=== PATIENT | female | born 1985 | race Caucasian/White ===

== ENCOUNTER 2018-08-03 13:35 | Emergency (ER) | payer MEDICAID, SELFPAY ==
[2018-08-03 13:37] VITALS: BP 146/87; PULSE 105; RESP 14; TEMP 36.7; O2SAT 100; BMI 33.0
--- NOTE | 2018-08-03 14:15 | RAD_ITS ---
STUDY: X-RAY - RIGHT ELBOW REASON FOR EXAM: Female, 33 years old. Pain following injury. TECHNIQUE: 3 view(s) of the elbow. COMPARISON: None. FINDINGS: Normal visualized humerus, radius and ulna. Normal radiocapitellar and ulnotrochlear articulations. The soft tissue structures are unremarkable. RAD/Elbow min 3 Views IMPRESSION: Normal x-ray examination of the elbow. Electronically Signed: Mac Barrett MD at 15:00 EST Tel [phone], Service support ,
--- NOTE | 2018-08-03 15:21 | ED.VISSUMM ---
- ER Visit Summary Date of Service: 08/03/18 Chief Complaint: Patient diagnosed with fracture yesterday at urgent care center History of Present Illness: The patient is a 33 F [id number]-[id number] woman who presents emergency room for second opinion. She states she was seen at urgent care center and told she had a fractured elbow. She does not have films with her. She was placed in a long-arm posterior Ortho-Glass splint. She denies paresthesia, anesthesia motors. She states they gave her nothing for pain . She denied head trauma. She denied neck pain. She states her blood sugar dropped. Review of records indicate that she is not diabetic. Physical Examination: Vital signs noted. BMI is 33. Right upper extremity is in a long-arm posterior Ortho-Glass splint. There is no neurovascular deficit to any of her digits. Test Results: Three-view x-ray of the left elbow was obtained interpreted by me as negative. There is no anterior fat pad nose or posterior fat pad. And there is no fracture noted involving the radial head. Emergency Department Course and Treatment: X-ray was obtained to delineate the type of fracture and appropriate treatment and analgesia. Treatment Plan: Rest, ice and keep appointment with orthopedic surgeon since she was informed she had a fracture. She was informed that the x-ray obtained today does not reveal fracture. Disposition: Discharge to home Impression: Left elbow pain secondary to fall second visit This note was generated with [employer] dictation software. It may contain incorrect words, spelling, and punctuation that were not noted in review of the chart prior to signing ED Disposition - Plan for ED Patient: Disposition: Home or Assisted Living Chief Complaint: Upper Extremity Injury Instructions: ED Contusion Elbow Referrals: Hussein Watts MD [Primary Care Provider] - Keep Jose appointment
--- NOTE | 2018-08-03 15:25 | ED.DCSUM_ITS ---
- ER Visit Summary Date of Service: 08/03/18 Chief Complaint: Patient diagnosed with fracture yesterday at urgent care center History of Present Illness: The patient is a 33 F [id number]-[id number]-myjvhanb woman who presents emergency room for second opinion. She states she was seen at urgent care center and told she had a fractured elbow. She does not have films with her. She was placed in a long-arm posterior Ortho-Glass splint. She denies paresthesia, anesthesia motors. She states they gave her nothing for pain . She denied head trauma. She denied neck pain. She states her blood sugar dropped. Review of records indicate that she is not diabetic. Physical Examination: Vital signs noted. BMI is 33. Right upper extremity is in a long-arm posterior Ortho-Glass splint. There is no neurovascular deficit to any of her digits. Test Results: Three-view x-ray of the left elbow was obtained interpreted by me as negative. There is no anterior fat pad nose or posterior fat pad. And there is no fracture noted involving the radial head. Emergency Department Course and Treatment: X-ray was obtained to delineate the type of fracture and appropriate treatment and analgesia. Treatment Plan: Rest, ice and keep appointment with orthopedic surgeon since she was informed she had a fracture. She was informed that the x-ray obtained today does not reveal fracture. Disposition: Discharge to home Impression: Left elbow pain secondary to fall second visit This note was generated with [employer] dictation software. It may contain incorrect words, spelling, and punctuation that were not noted in review of the chart prior to signing ED Disposition - Plan for ED Patient: Disposition: Home or Assisted Living Chief Complaint: Upper Extremity Injury Instructions: ED Contusion Elbow Referrals: Hussein Watts MD [Primary Care Provider] - Keep Jose appointment
--- OUTSIDE RECORDS SUMMARY | 2018-09-29 03:30 | XMS RPT_ITS ---
:1985 Author Organization OHIP Care Team Providers Name Role Phone JAIRON ODELL Attending Unavailable YVES STANTON Attending Unavailable ALEN HASSAN Attending Unavailable ALEN HASSAN Referring Unavailable JUAN CARLOS WEBER (CN) Attending Unavailable ALEN HASSAN Referring Unavailable ALEN HASSAN Attending Unavailable CORNELIUS NORTON Referring Unavailable KODY JONES Attending Unavailable CORNELIUS NORTON Referring Unavailable Alen Hassan Primary Care Unavailable Tin Lizama Attending Unavailable PROBLEMS PROBLEMS DATE TYPE CONDITION / CODE ATTENDING STATUS SOURCE 08/02/2018 Active Pain in right elbow NA Active [facility] / M25.521(ICD-10) [facility] Repository 06/11/2018 Active Encounter for NA Active [facility] screening for [facility] diabetes mellitus / Repository Z13.1(ICD-10) 06/11/2018 Active Encounter for NA Active [facility] screening for lipoid [facility] disorders / Repository Z13.220(ICD-10) 06/11/2018 Active Encounter for NA Active [facility] screening for [facility] cardiovascular Repository disorders / Z13.6(ICD-10) 06/11/2018 Active Encounter for NA Active [facility] general adult [facility] medical examination Repository without abnormal findings / Z00.00(ICD-10) 05/26/2018 Active Cough / R05(ICD-10) NAPORA, JAIRON Active [facility] GARCÍA [facility] Repository 05/26/2018 Active Acute upper NAPORA, JAIRON Active [facility] respiratory GARCÍA [facility] infection, Repository unspecified / J06.9(ICD-10) 05/26/2018 Active Other specified NAPORA, JAIRON Active [facility] disorders of nose GARCÍA [facility] and nasal sinuses / Repository J34.89(ICD-10) 02/23/2018 Active Major depressive YVES STANTON Active [facility] disorder, single S [facility] episode, unspecified Repository / F32.9(ICD-10) 02/23/2018 Active Suicidal ideations / YVES STANTON Active [facility] R45.851(ICD-10) S [facility] Repository 11/10/2017 Active Other injury of Active [facility] unspecified body [facility] region, initial Repository encounter / T14.8XXA(ICD-10) 11/10/2017 Active Local infection of NA Active [facility] the skin and Other [facility] subcutaneous tissue, Repository unspecified / L08.9(ICD-10) PROCEDURES PROCEDURES No Procedure Records FoundRESULTS RESULTS PROGRESS Observed: 08/10/2018 Status: COMPLETED Source: [facility] 4:55 PM [facility] REPOSITORY HNO ID: [id number] Author: Kody Jones V Service: (none) Author Type: Physician Type: Progress Notes Filed: 08/10/2018 4:59 PM Note Text: SUBJECTIVE: Sis Santamaria is a 33 year old female who is here for a right elbow injury. It occurred 2 weeks ago when she fell. Symptoms include pain over posterior elbow, stiffness and swelling in forearm. She was seen in express care, x-ray was questionable for coronoid process fracture, has tried splint and Marquis wrap. PAST MEDICAL HISTORY Diagnosis Date - Anxiety - Depression - Environmental allergies 06/11/2018 - Ex-smoker 06/11/2018 Started at age 19 less than 1/2 a PPD, quit as of May 2018 - History of drug use 06/11/2018 Marijuana, meth, heroine, cocaine, - Restless legs syndrome (RLS) 07/05/2018 PAST SURGICAL HISTORY Procedure Laterality Date - APPENDECTOMY 1995 - SECTION HX 2001,2007 - HERNIA REPAIR HX 2008 - KNEE SURGERY HX 2006 - TUBAL LIGATION HX 2007 Current Outpatient Prescriptions on File Prior to Visit: GABAPENTIN ORAL Take 300 mg by mouth daily at bedtime. traZODone (DESYREL) 50 mg tablet Take 50 mg by mouth daily at bedtime. As needed propranolol (INDERAL) 20 mg tablet Take one tab a day as needed for restless legs. nicotine (NICODERM CQ) 14 mg/24 hr Apply 1 Patch as directed every 24 hours. nicotine (NICODERM CQ) 7 mg/24 hr Apply 1 Patch as directed every 24 hours. ARIPiprazole (ABILIFY) 10 mg tablet TK 1 T PO D fluticasone (FLONASE) 50 mcg/actuation nasal spray Use 1 Bethany in each nostril daily at bedtime. BEFORE LYING DOWN FOR BED (Patient taking differently: Use 1 Bethany in each nostril as needed. BEFORE LYING DOWN FOR BED ) No current facility-administered medications on file prior to visit. Social History Marital status: Spouse name: Years of education: Number of children: 2 Occupational History Occupation Employer Comment [employer] Social History Main Topics Smoking status: Current Every Day Smoker Packs/day: 0.00 Years: 0.00 Smokeless tobacco: Never Used Comment: 5 cigarettes daily Alcohol use: No Drug use: No Sexual activity: Yes Partners with: Male control/protection: Tubal Ligation EXAM: General: cooperative and NAD Location: Right elbow: tenderness over the posterior aspect of the elbow, olecranon process, and forearm. There is minimal tenderness in the antecubital fossa or over the biceps tendon. Negative for: crepitation or instability Neurovascular: intact X-ray: Linear lucency over the coronoid process, no joint effusion, this is not the area of tenderness so fracture is less likely. IMPRESSION: Right elbow contusion, sprain PLAN: Marquis wrap, limited activity, ice as directed Patient Instructions: Recheck in 2 weeks for further evaluation should symptoms continue Kody Jones DO PROGRESS Observed: 08/10/2018 Status: COMPLETED Source: [facility] 3:25 PM [facility] REPOSITORY [facility] ID: [id number] Author: Selam Waldrop Ma Service: (none) Author Type: (none) Type: Progress Notes Filed: 08/10/2018 4:59 PM Note Text: Patient presents with: New Patient: 2 weeks 1 day post right elbow fracture - Ref. Cierra DELUCA ROOMING INTAKE FLOWSHEET DATA Risk Screening Do you have concerns about personal safety or safety in the home?: No Pain Pain Score: 8/10 Pain Location: Elbow-Right Description: Sharp, Shooting Duration Amount of Time: 2 Duration Units: Weeks Frequency: Continuous Intervention: Medication Patient states 2 weeks ago she fell racing her oldest daughter at the school parking lot landing on her right elbow. Seen in Urgent care on 08/02/18 and x-ray done. Was splinted and given a sling. States she has been wearing but took it off today and has it in her car. Patient is right handed. 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 Has been taking 2000 mg of Ibuprofen a day or Aleve for the pain. CNOV Observed: 08/10/2018 Status: COMPLETED Source: [facility] 3:00 PM [facility] REPOSITORY Office Visit () SIS SANTAMARIA ([id number]) 1985 F Date Time Provider Department 08/10/18 3:00 PM KODY JONES During your visit today, we recorded the following information about you: Selam Waldrop Hue 08/10/2018 4:59 PM Signed Patient presents with: New Patient: 2 weeks 1 day post right elbow fracture - Ref. Cierra DELUCA ROOMING INTAKE FLOWSHEET DATA Risk Screening Do you have concerns about personal safety or safety in the home?: No Pain Pain Score: 8/10 Pain Location: Elbow-Right Description: Sharp, Shooting Duration Amount of Time: 2 Duration Units: Weeks Frequency: Continuous Intervention: Medication Patient states 2 weeks ago she fell racing her oldest daughter at the school parking lot landing on her right elbow. Seen in Urgent care on 08/02/18 and x-ray done. Was splinted and given a sling. States she has been wearing but took it off today and has it in her car. Patient is right handed. 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 Has been taking 2000 mg of Ibuprofen a day or Aleve for the pain. Kody Jones DO 08/10/2018 4:59 PM Signed SUBJECTIVE: Sis Santamaria is a 33 year old female who is here for a right elbow injury. It occurred 2 weeks ago when she fell. Symptoms include pain over posterior elbow, stiffness and swelling in forearm. She was seen in express care, x-ray was questionable for coronoid process fracture, has tried splint and Marquis wrap. PAST MEDICAL HISTORY Diagnosis Date - Anxiety - Depression - Environmental allergies 06/11/2018 - Ex-smoker 06/11/2018 Started at age 19 less than 1/2 a PPD, quit as of May 2018 - History of drug use 06/11/2018 Marijuana, meth, heroine, cocaine, - Restless legs syndrome (RLS) 07/05/2018 PAST SURGICAL HISTORY Procedure Laterality Date - APPENDECTOMY 1995 - SECTION HX 2001,2007 - HERNIA REPAIR HX 2008 - KNEE SURGERY HX 2006 - TUBAL LIGATION HX 2007 Current Outpatient Prescriptions on File Prior to Visit: GABAPENTIN ORAL Take 300 mg by mouth daily at bedtime. traZODone (DESYREL) 50 mg tablet Take 50 mg by mouth daily at bedtime. As needed propranolol (INDERAL) 20 mg tablet Take one tab a day as needed for restless legs. nicotine (NICODERM CQ) 14 mg/24 hr Apply 1 Patch as directed every 24 hours. nicotine (NICODERM CQ) 7 mg/24 hr Apply 1 Patch as directed every 24 hours. ARIPiprazole (ABILIFY) 10 mg tablet TK 1 T PO D fluticasone (FLONASE) 50 mcg/actuation nasal spray Use 1 Bethany in each nostril daily at bedtime. BEFORE LYING DOWN FOR BED (Patient taking differently: Use 1 Bethany in each nostril as needed. BEFORE LYING DOWN FOR BED ) No current facility-administered medications on file prior to visit. Social History Marital status: Spouse name: Years of education: Number of children: 2 Occupational History Occupation Employer Comment [employer] Social History Main Topics Smoking status: Current Every Day Smoker Packs/day: 0.00 Years: 0.00 Smokeless tobacco: Never Used Comment: 5 cigarettes daily Alcohol use: No Drug use: No Sexual activity: Yes Partners with: Male control/protection: Tubal Ligation EXAM: General: cooperative and NAD Location: Right elbow: tenderness over the posterior aspect of the elbow, olecranon process, and forearm. There is minimal tenderness in the antecubital fossa or over the biceps tendon. Negative for: crepitation or instability Neurovascular: intact X-ray: Linear lucency over the coronoid process, no joint effusion, this is not the area of tenderness so fracture is less likely. IMPRESSION: Right elbow contusion, sprain PLAN: Marquis wrap, limited activity, ice as directed Patient Instructions: Recheck in 2 weeks for further evaluation should symptoms continue Kody Jones DO Referring Provider: CORNELIUS NORTON [[id number]] Allergies As of Date: 08/10/2018 Noted Allergy Reaction PENICILLINS 10/12/2014 4 - Hives MORPHINE 12/13/2015 4 - Hives Date Reviewed: 08/10/2018 Reviewed by: Selam Waldrop Ma - Fully Assessed Reason for Visit: New Patient [172] Cmt: 2 weeks 1 day post right elbow fracture - Ref. Cierra Primary Visit Diagnosis:Elbow injury, right, subsequent encounter [S59.577F] Prescriptions as of 08/10/2018 Sig: GABAPENTIN ORAL Take 300 mg by mouth daily at* TRAZODONE 50 MG TABLET Take 50 mg by mouth daily at * PROPRANOLOL 20 MG TABLET Take one tab a day as needed * NICOTINE 14 MG/24 HR DAILY TR* Apply 1 Patch as directed walter* NICOTINE 7 MG/24 HR DAILY TRA* Apply 1 Patch as directed walter* ARIPIPRAZOLE 10 MG TABLET TK 1 T PO D FLUTICASONE 50 MCG/ACTUATION * Use 1 Bethany in each nostril d* Patient taking differently: Use 1 Bethany in each nostril a* Problem List As Of Date 08/10/2018 Noted Resolved Pelvic pain in female [R10.2] INVALID FOR* PTSD (post-traumatic stress disorder) [F43.10] INVALID FOR* More... Environmental allergies [Z91.09] INVALID FOR* Ex-smoker [Z87.891] INVALID FOR* More... History of drug use [Z87.898] INVALID FOR* More... Well adult exam [Z00.00] INVALID FOR* More... Encounter for lipid screening for cardiovascula*INVALID FOR* Encounter for screening for diabetes mellitus [*INVALID FOR* Encounter for gynecological examination [Z01.41*INVALID FOR* Restless legs syndrome (RLS) [G25.81] INVALID FOR* Letter Text Kody Jones DO [address], [place] [address] 08/10/2018 TO WHOM IT MAY CONCERN: This is to confirm that Sis Santamaria had an appointment and was seen at the [facility] in the Department of Orthopedics by Kody Jones DO on 08/10/2018 and may return to work on 08/11/2018- activity to tolerance. Sincerely yours, Kody Jones DO Encounter Status:Closed by KODY JONES DO, V on 08/10/18 EMERGENCY DEPARTMENT Observed: 08/03/2018 Status: F Source: [facility] SUMMARY 3:25 PM [facility] REPOSITORY [facility] Medical Records Department [address] [place] [address] Emergency Department Summary 08/03/18 1521 MR#: [id number] Acct: [id number] Name: SIS SANTAMARIA Rep #: [id number] : 1985 33 From: Tin Lizama MD PCP: Alen Hassan MD Status: REG ER - ER Visit Summary Date of Service: 08/03/18 Chief Complaint: Patient diagnosed with fracture yesterday at urgent care center History of Present Illness: The patient is a 33 F [id number] woman who presents emergency room for second opinion. She states she was seen at urgent care center and told she had a fractured elbow. She does not have films with her. She was placed in a long-arm posterior Ortho-Glass splint. She denies paresthesia, anesthesia motors. She states they gave her nothing for pain . She denied head trauma. She denied neck pain. She states her blood sugar dropped. Review of records indicate that she is not diabetic. Physical Examination: Vital signs noted. BMI is 33. Right upper extremity is in a long-arm posterior Ortho-Glass splint. There is no neurovascular deficit to any of her digits. Test Results: Three-view x-ray of the left elbow was obtained interpreted by me as negative. There is no anterior fat pad nose or posterior fat pad. And there is no fracture noted involving the radial head. Emergency Department Course and Treatment: X-ray was obtained to delineate the type of fracture and appropriate treatment and analgesia. Treatment Plan: Rest, ice and keep appointment with orthopedic surgeon since she was informed she had a fracture. She was informed that the x-ray obtained today does not reveal fracture. Disposition: Discharge to home Impression: Left elbow pain secondary to fall second visit This note was generated with Screen dictation software. It may contain incorrect words, spelling, and punctuation that were not noted in review of the chart prior to signing ED Disposition - Plan for ED Patient: Disposition: Home or Assisted Living Chief Complaint: Upper Extremity Injury Instructions: ED Contusion Elbow Referrals: Alen Hassan MD [Primary Care Provider] - Keep Jose appointment What to do if you have Problems For any increased pain, shortness of breath, bleeding, nausea or vomiting, chest pain, or any unexpected problems, contact your Primary Care Provider. Call [facility] ([phone]) or report to the closest Emergency Room. Call 911 if necessary. 08/03/18 1525 <Electronically signed by Tin Lizama MD> Date Tin Lizama MD Cosigner Signature (If Indicated): Date CC: Alen Hassan MD ELBOW MIN 3 VIEWS Observed: 08/03/2018 Status: F Source: [place] 1:46 PM [facility] REPOSITORY [facility] Imaging Services [address] [place] [address] Elbow min 3 Views MR#: [id number] Acct: [id number] Name: SIS SANTAMARIA Rep #: [id number] : 1985 F 33 From: Mac Barrett MD PCP: Alen Hassan MD Status: REG ER Study: Elbow min 3 Views Date of Exam: 08/03/18 Exam# [id number] Ordering Dr: Tin Lizama MD STUDY: X-RAY - RIGHT ELBOW REASON FOR EXAM: Female, 33 years old. Pain following injury. TECHNIQUE: 3 view(s) of the elbow. COMPARISON: None. FINDINGS: Normal visualized humerus, radius and ulna. Normal radiocapitellar and ulnotrochlear articulations. The soft tissue structures are unremarkable. RAD/Elbow min 3 Views IMPRESSION: Normal x-ray examination of the elbow. Electronically Signed: Mac Barrett MD at 15:00 EST Tel [phone], Service support , CC: Alen Hassan MD; Tin Lizama MD Longwall Machine Operator Helper: Signed XR ELBOW 3V AP/LAT/OTHER Observed: 08/02/2018 Status: C Source: [facility] RT 1:08 PM [facility] REPOSITORY * * *Final Report* * * * * * SEE BOTTOM OF REPORT FOR ADDENDED TEXT * * * DATE OF EXAM: Aug 02 2018 1:08PM WOX [id number] - XR ELBOW 3V AP/LAT/OTHER RT / PROCEDURE REASON: Elbow pain, right * * * * Physician Interpretation * * * * * * * * * * * * ORIGINAL REPORT * * * * * * * * PROCEDURE: Right elbow INDICATION: Elbow pain, right .Posterior right elbow pain following a fall. TECHNIQUE: XR ELBOW 3V AP/LAT/OTHER RT COMPARISON: None FINDINGS: No fractures or dislocations are seen. No significant degenerative or arthritic change is evident. There is no evidence for joint effusion or significant soft tissue swelling. IMPRESSION: Negative * * * * * * * * ADDENDUM #1 * * * * * * * * Further review demonstrates a vague, incomplete lucency in the coronoid process on one view. This is nonspecific. Fracture however cannot be excluded. Longwall Machine Operator Helper: PSCB Transcribe Date/Time: Aug 02 2018 2:18P Dictated by : REJI INFANTE MD This examination was interpreted and the report reviewed and electronically signed by: REJI INFANTE MD on Aug 02 2018 1:59PM EST This document has been addended by: REJI INFANTE MD on Aug 02 2018 2:20PM EST [id number] PROGRESS Observed: 08/02/2018 Status: COMPLETED Source: [facility] 1:00 PM [facility] REPOSITORY HNO ID: [id number] Author: Minerva Golden (Rt) Manuel Tam Service: (none) Author Type: French Professor Type: Progress Notes Filed: 08/02/2018 1:08 PM Note Text: Radiology Service Progress Note PATIENT NAME: Sis Santamaria DATE OF SERVICE: August 02, 2018 TIME: 1:00 PM PATIENT IDENTITY VERIFICATION COMPLETED USING TWO (2) METHODS: Patient confirmed name verbally and Date of . PATIENT GENDER DATA: Female. status: : No status: NO. PATIENT RELEVANT IMPLANT DATA REVIEWED: Not Applicable RADIOLOGY DEPARTMENT: General X-ray: Exam(s) Completed: Upper Extremity X-Ray(s): Elbow, right : PERIPHERAL IV DATA: Not applicable SIGNED BY: RT Yuliet August 02, 2018 1:00 PM PROGRESS Observed: 08/02/2018 Status: COMPLETED Source: [place] 12:37 PM [facility] [place] REPOSITORY HNO ID: [id number] Author: Cornelius Norton Service: (none) Author Type: Physician Type: Progress Notes Filed: 08/02/2018 1:47 PM Note Text: Patient presents with: Acute Visit: Right arm injury d/t fall x 5 days HPI: Right elbow pain: Duration: Fell 5 days ago, does not recall the mechanism of how she fell. Location: Posterior right elbow Character: throbbing Radiation: Whole arm if leaning on the right elbow Aggravating: Moving, leaning on Pain relievers: aleve Associated: Fingers are swollen, hand and arm go numb when aggravated, weak hand warehouse picker Pertinent negatives: MEDICATIONS: GABAPENTIN ORAL Take 300 mg by mouth daily at bedtime. traZODone (DESYREL) 50 mg tablet Take 50 mg by mouth daily at bedtime. As needed propranolol (INDERAL) 20 mg tablet Take one tab a day as needed for restless legs. nicotine (NICODERM CQ) 14 mg/24 hr Apply 1 Patch as directed every 24 hours. ARIPiprazole (ABILIFY) 10 mg tablet TK 1 T PO D fluticasone (FLONASE) 50 mcg/actuation nasal spray Use 1 Bethany in each nostril daily at bedtime. BEFORE LYING DOWN FOR BED nicotine (NICODERM CQ) 7 mg/24 hr Apply 1 Patch as directed every 24 hours. ALLERGIES: ALLERGIES Allergen Reactions - Penicillins Hives - Morphine Hives VITALS: BP 108/84 Pulse 92 Temp 37.1 ?C (98.8 ?F) (Left Tympanic) Resp 16 Wt 86.1 kg (189 lb 12.8 oz) SpO2 97% BMI 32.58 kg/m? PE: Pleasant, in no acute distress. Neck: No midline or trapezius tenderness. Should: Non-tender to palpation or ROM Elbow: No erythema, edema, ecchymosis, or deformity. Decreased supination due to pain. Full flexion and extension is uncomfortable. Tender medial condyle>olecranon. Medial malleolus and radial head seem non-tender. Hand: Unable to remove rings on fingers but not visibly swollen. Weak right hand warehouse picker and finger abduction compared to the left.Normal finger sensation to monofilament. ASSESSMENT/PLAN: 1. Closed nondisplaced fracture of coronoid process of right ulna, initial encounter - ICD9: 813.02, ICD10: S52.044A (primary diagnosis) 2. Elbow pain, right - ICD9: 719.42, ICD10: M25.521 - CONSULT TO ORTHOPAEDICS - XR ELBOW SPECIAL VIEWS AP/LAT/OTHER RT Long arm orthoglass splint and sling. Given work excuse limiting right arm use until cleared by ortho. Cornelius Norton MD CNOV Observed: 08/02/2018 Status: COMPLETED Source: [place] 12:15 PM [facility] REPOSITORY Office Visit (WSTR) SIS SANTAMARIA ([id number]) 1985 F Date Time Provider Department 08/02/18 12:15 PM CORNELIUS NORTON During your visit today, we recorded the following information about you: Temperature Pulse Respiration Blood pressure 98.8 degrees 92/minute 16/minute 108/84 Weight 86.1 kg Cornelius Norton MD 08/02/2018 1:47 PM Signed Patient presents with: Acute Visit: Right arm injury d/t fall x 5 days HPI: Right elbow pain: Duration: Fell 5 days ago, does not recall the mechanism of how she fell. Location: Posterior right elbow Character: throbbing Radiation: Whole arm if leaning on the right elbow Aggravating: Moving, leaning on Pain relievers: aleve Associated: Fingers are swollen, hand and arm go numb when aggravated, weak hand warehouse picker Pertinent negatives: MEDICATIONS: GABAPENTIN ORAL Take 300 mg by mouth daily at bedtime. traZODone (DESYREL) 50 mg tablet Take 50 mg by mouth daily at bedtime. As needed propranolol (INDERAL) 20 mg tablet Take one tab a day as needed for restless legs. nicotine (NICODERM CQ) 14 mg/24 hr Apply 1 Patch as directed every 24 hours. ARIPiprazole (ABILIFY) 10 mg tablet TK 1 T PO D fluticasone (FLONASE) 50 mcg/actuation nasal spray Use 1 Bethany in each nostril daily at bedtime. BEFORE LYING DOWN FOR BED nicotine (NICODERM CQ) 7 mg/24 hr Apply 1 Patch as directed every 24 hours. ALLERGIES: ALLERGIES Allergen Reactions - Penicillins Hives - Morphine Hives VITALS: BP 108/84 Pulse 92 Temp 37.1 ?C (98.8 ?F) (Left Tympanic) Resp 16 Wt 86.1 kg (189 lb 12.8 oz) SpO2 97% BMI 32.58 kg/m? PE: Pleasant, in no acute distress. Neck: No midline or trapezius tenderness. Should: Non-tender to palpation or ROM Elbow: No erythema, edema, ecchymosis, or deformity. Decreased supination due to pain. Full flexion and extension is uncomfortable. Tender medial condyle>olecranon. Medial malleolus and radial head seem non-tender. Hand: Unable to remove rings on fingers but not visibly swollen. Weak right hand warehouse picker and finger abduction compared to the left.Normal finger sensation to monofilament. ASSESSMENT/PLAN: 1. Closed nondisplaced fracture of coronoid process of right ulna, initial encounter - ICD9: 813.02, ICD10: S52.044A (primary diagnosis) 2. Elbow pain, right - ICD9: 719.42, ICD10: M25.521 - CONSULT TO ORTHOPAEDICS - XR ELBOW SPECIAL VIEWS AP/LAT/OTHER RT Long arm orthoglass splint and sling. Given work excuse limiting right arm use until cleared by ortho. Cornelius Norton MD Referring Provider: SELF [[id number]] Allergies As of Date: 08/02/2018 Noted Allergy Reaction PENICILLINS 10/12/2014 4 - Hives MORPHINE 12/13/2015 4 - Hives Date Reviewed: 08/02/2018 Reviewed by: Adrianne Rivas Ma - Fully Assessed Reason for Visit: Acute Visit [896] Cmt: Right arm injury d/t fall x 5 days Reason For Visit History Recorded Primary Visit Diagnosis:Closed nondisplaced fracture of coronoid process of right ulna, initial encounter [S52.044A] Other Visit Diagnosis:Elbow pain, right [M25.521] Order(s):XR ELBOW SPECIAL VIEWS AP/LAT/OTHER RT [8157851] Order #: [id number] FUTURE CONSULT TO ORTHOPAEDICS [9050] Order #: [id number]: 1 Prescriptions as of 08/02/2018 Sig: GABAPENTIN ORAL Take 300 mg by mouth daily at* TRAZODONE 50 MG TABLET Take 50 mg by mouth daily at * PROPRANOLOL 20 MG TABLET Take one tab a day as needed * NICOTINE 14 MG/24 HR DAILY TR* Apply 1 Patch as directed walter* ARIPIPRAZOLE 10 MG TABLET TK 1 T PO D FLUTICASONE 50 MCG/ACTUATION * Use 1 Bethany in each nostril d* Patient taking differently: Use 1 Bethany in each nostril a* NICOTINE 7 MG/24 HR DAILY TRA* Apply 1 Patch as directed walter* Problem List As Of Date 08/02/2018 Noted Resolved Pelvic pain in female [R10.2] INVALID FOR* PTSD (post-traumatic stress disorder) [F43.10] INVALID FOR* Priority: A More... Environmental allergies [Z91.09] INVALID FOR* Priority: B Ex-smoker [Z87.891] INVALID FOR* Priority: B More... History of drug use [Z87.898] INVALID FOR* Priority: B More... Well adult exam [Z00.00] INVALID FOR* Priority: E More... Encounter for lipid screening for cardiovascula*INVALID FOR* Encounter for screening for diabetes mellitus [*INVALID FOR* Encounter for gynecological examination [Z01.41*INVALID FOR* Priority: E Restless legs syndrome (RLS) [G25.81] INVALID FOR* Priority: B Letter Text [facility] [place], [place] [address] 08/02/2018 TO WHOM IT MAY CONCERN: This is to confirm that Sis Santamaria had an appointment and was seen at the [facility] in the Department of Urgent Care by Cornelius Norton MD on 08/02/2018. Please excuse her from lifting or pushing with her right arm until cleared by orthopedics. Sincerely , Cornelius Norton MD Encounter Status:Closed by CORNELIUS NORTON MD on 08/02/18 PROGRESS Observed: 07/05/2018 Status: COMPLETED Source: [facility] 4:35 PM [facility] REPOSITORY HNO ID: [id number] Author: Alen Hassan Service: (none) Author Type: Physician Type: Progress Notes Filed: 07/05/2018 10:30 PM Note Text: Chief Complaint Patient presents with: Consult: smoking cessation HPI Sis Santamaria is a 33 year old female who presents here today for Above Complaints.. Patient tried quitting cold turkey and was able to go 21 days but the cravings became an issue. Smoking about 1/2 a PPD. Past medical history, appointments, medications, allergies reviewed. Previous Medical History PAST MEDICAL HISTORY Diagnosis Date - Anxiety - Depression - Environmental allergies 06/11/2018 - Ex-smoker 06/11/2018 Started at age 19 less than 1/2 a PPD, quit as of May 2018 - History of drug use 06/11/2018 Marijuana, meth, heroine, cocaine, - Restless legs syndrome (RLS) 07/05/2018 Previous Surgical History PAST SURGICAL HISTORY Procedure Laterality Date - APPENDECTOMY 1995 - SECTION HX 2001,2007 - HERNIA REPAIR HX 2008 - KNEE SURGERY HX 2006 - TUBAL LIGATION HX 2007 Family History FAMILY HISTORY Problem Relation Age of Onset - Hypertension Mother - Hyperlipidemia Mother - other (Other) Father Unknown - other (Endometrosis) Sister - Cancer Maternal Grandmother - Coronary Artery Disease Maternal Grandfather 60's - Hypertension Maternal Grandfather - No Known Problems Brother - other (Endometrosis) Sister - No Known Problems Sister - Alzheimer's Disease No Family History - Colon Cancer No Family History - Breast Cancer No Family History - Ovarian cancer No Family History - Uterine Cancer No Family History - Prostate Cancer No Family History - Diabetes No Family History - Kidney Disease No Family History - Stroke No Family History - Thyroid No Family History Patient Allergies ALLERGIES Allergen Reactions - Penicillins Hives Current Medications Current Outpatient Prescriptions on File Prior to Visit: ARIPiprazole (ABILIFY) 10 mg tablet TK 1 T PO D fluticasone (FLONASE) 50 mcg/actuation nasal spray Use 1 Bethany in each nostril daily at bedtime. BEFORE LYING DOWN FOR BED (Patient taking differently: Use 1 Bethany in each nostril as needed. BEFORE LYING DOWN FOR BED ) No current facility-administered medications on file prior to visit. Social History Social History Marital status: Spouse name: Years of education: Number of children: 2 Occupational History Occupation Employer Comment [employer] Social History Main Topics Smoking status: Former Smoker Packs/day: 0.00 Years: 0.00 Smokeless tobacco: Never Used Alcohol use: No Drug use: No Sexual activity: Yes Partners with: Male control/protection: Tubal Ligation Review of Symptoms REVIEW OF SYSTEMS none EXAM: BP 110/80 (BP Site: Right Arm, BP Position: Sitting, BP Cuff Size: Regular Adult) Pulse 78 Resp 16 Wt 84.8 kg (187 lb) LMP 06/13/2018 BMI 32.10 kg/m? General Appearance: Well appearing, alert, in no acute distress, well-hydrated, well nourished.. Lungs: Lungs clear to auscultation. No wheezing, rhonchi, rales. Heart: RRR without murmur, gallop, or rubs. No ectopy. Health Maintenance List ONE PNEUMOVAX PRIOR TO AGE 63 due on 2002 PAP EVERY 5 YEARS due on 06/15/2023 HPV EVERY 5 YEARS due on 06/15/2023 DTAP,TDAP,TD(2 - Td) due on 06/11/2028 Data reviewed A/P ASSESSMENT/PLAN: 1. Smoker - ICD9: 305.1, ICD10: F17.200 (primary diagnosis) - Cessation encouraged. - Counseling was given focusing on the harmful effects of this addiction especially given the patient's medical condition(s) which will be worsened because of the chemicals in tobacco. - Prescription for nicotine patchess given Discussed Wellbutrin and Chantix and would prefer to avoid these at this time but if needed to would use the Wellbutrin first. Signed Prescriptions Disp Refills propranolol (INDERAL) 20 mg tablet Sig: Take one tab a day as needed for restless legs. nicotine (NICODERM CQ) 14 mg/24 hr 21 Patch 0 Sig: Apply 1 Patch as directed every 24 hours. nicotine (NICODERM CQ) 7 mg/24 hr 21 Patch 1 Sig: Apply 1 Patch as directed every 24 hours. F/u as needed. Alen Hassan MD CNOV Observed: 07/05/2018 Status: COMPLETED Source: [facility] 3:40 PM [facility] REPOSITORY [facility] SIS SANTAMARIA ([id number]) 1985 F Date Time Provider Department 07/05/18 3:40 PM [facility] During your visit today, we recorded the following information about you: Pulse Respiration Blood pressure Weight 78/minute 16/minute 110/80 84.8 kg Alen Hassan MD 07/05/2018 10:30 PM Signed Chief Complaint Patient presents with: Consult: smoking cessation HPI Sis Santamaria is a 33 year old female who presents here today for Above Complaints.. Patient tried quitting cold turkey and was able to go 21 days but the cravings became an issue. Smoking about 1/2 a PPD. Past medical history, appointments, medications, allergies reviewed. Previous Medical History PAST MEDICAL HISTORY Diagnosis Date - Anxiety - Depression - Environmental allergies 06/11/2018 - Ex-smoker 06/11/2018 Started at age 19 less than 1/2 a PPD, quit as of May 2018 - History of drug use 06/11/2018 Marijuana, meth, heroine, cocaine, - Restless legs syndrome (RLS) 07/05/2018 Previous Surgical History PAST SURGICAL HISTORY Procedure Laterality Date - APPENDECTOMY 1995 - SECTION HX 2001,2008 - HERNIA REPAIR HX 2009 - KNEE SURGERY HX 2007 - TUBAL LIGATION HX 2008 Family History FAMILY HISTORY Problem Relation Age of Onset - Hypertension Mother - Hyperlipidemia Mother - other (Other) Father Unknown - other (Endometrosis) Sister - Cancer Maternal Grandmother - Coronary Artery Disease Maternal Grandfather 60's - Hypertension Maternal Grandfather - No Known Problems Brother - other (Endometrosis) Sister - No Known Problems Sister - Alzheimer's Disease No Family History - Colon Cancer No Family History - Breast Cancer No Family History - Ovarian cancer No Family History - Uterine Cancer No Family History - Prostate Cancer No Family History - Diabetes No Family History - Kidney Disease No Family History - Stroke No Family History - Thyroid No Family History Patient Allergies ALLERGIES Allergen Reactions - Penicillins Hives Current Medications Current Outpatient Prescriptions on File Prior to Visit: ARIPiprazole (ABILIFY) 10 mg tablet TK 1 T PO D fluticasone (FLONASE) 50 mcg/actuation nasal spray Use 1 Bethany in each nostril daily at bedtime. BEFORE LYING DOWN FOR BED (Patient taking differently: Use 1 Bethany in each nostril as needed. BEFORE LYING DOWN FOR BED ) No current facility-administered medications on file prior to visit. Social History Social History Marital status: Spouse name: Years of education: Number of children: 2 Occupational History Occupation Employer Comment [employer] Social History Main Topics Smoking status: Former Smoker Packs/day: 0.00 Years: 0.00 Smokeless tobacco: Never Used Alcohol use: No Drug use: No Sexual activity: Yes Partners with: Male control/protection: Tubal Ligation Review of Symptoms REVIEW OF SYSTEMS none EXAM: BP 110/80 (BP Site: Right Arm, BP Position: Sitting, BP Cuff Size: Regular Adult) Pulse 78 Resp 16 Wt 84.8 kg (187 lb) LMP 06/13/2018 BMI 32.10 kg/m? General Appearance: Well appearing, alert, in no acute distress, well-hydrated, well nourished.. Lungs: Lungs clear to auscultation. No wheezing, rhonchi, rales. Heart: RRR without murmur, gallop, or rubs. No ectopy. Health Maintenance List ONE PNEUMOVAX PRIOR TO AGE 63 due on 2002 PAP EVERY 5 YEARS due on 06/15/2023 HPV EVERY 5 YEARS due on 06/15/2023 DTAP,TDAP,TD(2 - Td) due on 06/11/2028 Data reviewed A/P ASSESSMENT/PLAN: 1. Smoker - ICD9: 305.1, ICD10: F17.200 (primary diagnosis) - Cessation encouraged. - Counseling was given focusing on the harmful effects of this addiction especially given the patient's medical condition(s) which will be worsened because of the chemicals in tobacco. - Prescription for nicotine patchess given Discussed Wellbutrin and Chantix and would prefer to avoid these at this time but if needed to would use the Wellbutrin first. Signed Prescriptions Disp Refills propranolol (INDERAL) 20 mg tablet Sig: Take one tab a day as needed for restless legs. nicotine (NICODERM CQ) 14 mg/24 hr 21 Patch 0 Sig: Apply 1 Patch as directed every 24 hours. nicotine (NICODERM CQ) 7 mg/24 hr 21 Patch 1 Sig: Apply 1 Patch as directed every 24 hours. F/u as needed. Alen Hassan MD Referring Provider: SELF [200] Allergies As of Date: 07/05/2018 Noted Allergy Reaction PENICILLINS 10/12/2014 4 - Hives Date Reviewed: 07/05/2018 Reviewed by: Alen Hassan - Fully Assessed Reason for Visit: Consult [502] Cmt: smoking cessation Primary Visit Diagnosis:Smoker [F17.200] Order(s):propranolol (INDERAL) 20 mg tabletTake one tab a day as needed for restless legs.Disp: Rfl: nicotine (NICODERM CQ) 14 mg/24 hrApply 1 Patch as directed every 24 hours.Disp: 21 PatchRfl: 0 nicotine (NICODERM CQ) 7 mg/24 hrApply 1 Patch as directed every 24 hours.Disp: 21 PatchRfl: 1 Prescriptions as of 07/05/2018 Sig: GABAPENTIN ORAL Take 300 mg by mouth daily at* TRAZODONE 50 MG TABLET Take 50 mg by mouth daily at * ARIPIPRAZOLE 10 MG TABLET TK 1 T PO D FLUTICASONE 50 MCG/ACTUATION * Use 1 Bethany in each nostril d* Patient taking differently: Use 1 Bethany in each nostril a* PROPRANOLOL 20 MG TABLET Take one tab a day as needed * NICOTINE 14 MG/24 HR DAILY TR* Apply 1 Patch as directed walter* NICOTINE 7 MG/24 HR DAILY TRA* Apply 1 Patch as directed walter* Problem List As Of Date 07/05/2018 Noted Resolved Pelvic pain in female [R10.2] INVALID FOR* PTSD (post-traumatic stress disorder) [F43.10] INVALID FOR* Priority: A More... Environmental allergies [Z91.09] INVALID FOR* Priority: B Ex-smoker [Z87.891] INVALID FOR* Priority: B More... History of drug use [Z87.898] INVALID FOR* Priority: B More... Well adult exam [Z00.00] INVALID FOR* Priority: E More... Encounter for lipid screening for cardiovascula*INVALID FOR* Encounter for screening for diabetes mellitus [*INVALID FOR* Encounter for gynecological examination [Z01.41*INVALID FOR* Priority: E Restless legs syndrome (RLS) [G25.81] INVALID FOR* Priority: B Prescriptions ordered this encounter Disp Refills Start End PROPRANOLOL 20 MG TABLET 07/05/2018 Class: Med Update Sig: Take one tab a day as needed for restless legs. NICOTINE 14 MG/24 HR DAILY TRANSDERM* 21 P* 0 07/05/2018 Cmt: To start once done with the 21 mg patches Route: TRANSDERM. Sig: Apply 1 Patch as directed every 24 hours. NICOTINE 7 MG/24 HR DAILY TRANSDERMA* 21 P* 1 07/05/2018 Cmt: To start once done with the 14 mg patches Route: TRANSDERM. Sig: Apply 1 Patch as directed every 24 hours. Disposition: Return if symptoms worsen or fail to improve. Follow-up and Disposition History Recorded Encounter Status:Closed by ALEN HASSAN on 07/05/18 PROGRESS Observed: 06/22/2018 Status: COMPLETED Source: [facility] 3:55 PM [facility] REPOSITORY HNO ID: [id number] Author: Juan Carlos Shanks Service: (none) Author Type: (none) Type: Progress Notes Filed: 06/22/2018 3:56 PM Note Text: Pap logged and normal pap letter sent to patient. Juan Carlos Shanks HPV W/GENOTYPE Collected: 06/15/2018 Status: F Source: [facility] 1:53 PM [facility] [place] REPOSITORY TYPE CODE TESTS RESULT OUT OF REFERENCE UNITS RANGE LAB HPVT16 HPV HighRisk Negative for Type 16 HPV DNA high risk type 16 by PCR. LAB HPVT18 HPV HighRisk Negative for Type 18 HPV DNA high risk type 18 by PCR. LAB HPVHRO HPV HighRisk Negative for Other HPV DNA high risk types: 31,33,35,39,45 ,51,52,56,58,5 9,66,68 by PCR. Result Comment: This test was developed and its performance characteristics determined by [facility] Pathology and Laboratory Medicine [place] ([facility]). It has not been cleared or approved by the FDA. [facility] is regulated under CLIA as qualified to perform high-complexity testing. This test is used for clinical purposes. It should not be regarded as inv estigational or for research. Performed By: #### HPVHRR #### [facility] [address] [place], [place] [address] CYTOLOGY Observed: 06/15/2018 Status: C Source: [facility] 11:58 [facility] REPOSITORY ADDITIONAL PROCEDURES PRESENT Specimen originated from [facility] Specimen #: [id number] Submitting Physician: JUAN CARLOS WEBER CNM SPECIMEN SUBMITTED A: CERVICAL, SCREENING, FLUID FINAL DIAGNOSIS A. CERVICAL, SCREENING, FLUID Satisfactory for interpretation. Negative for intraepithelial lesion or malignancy. Predominance of coccobacilli consistent with shift in vaginal brenda. This specimen has been analyzed by the Kineticp Imaging System, an automated imaging and review system, which assists the laboratory in evaluating cells on ThinPrep Pap tests. Following automated imaging, selected monroe from every slide are reviewed by a deputy sheriff civil division. JUSTIN Newman(ASCP) (Electronic Signature) ADDITIONAL PROCEDURE(S) HUMAN PAPILLOMA VIRUS Date Ordered: 06/16/2018 Date Reported: 06/17/2018 Procedure Results and Interpretation Negative for HPV DNA high risk type 16 by PCR. Negative for HPV DNA high risk type 18 by PCR. Negative for HPV DNA high risk types: 31,33,35,39,45,51,52,56,58,59,66,68 by PCR. This test was developed and its performance characteristics determined by [facility]ology [facility] Laboratory [facility] [place] ([facility]). It has not been cleared or approved by the FDA. [facility] is regulated under CLIA as qualified to perform high-complexity testing. This test is used for clinical purposes. It should not be regarded as investigational or for research. CLINICAL DATA ROUTINE EXAM, HPV Testing: Yes, automatic HPV patients over 30 Date of Last Menstrual Period: 06/13/2018 STAINS A: CERVICAL, SCREENING, FLUID THIN PREP INSPECTION AND TESTING SUPERVISOR Fabiana Del Rosario M.D., Janitor And Cleaner Date of Report: 06/22/2018 Date of Procedure: 06/15/2018 Date of Receipt: 06/16/2018 Submitted by: JUAN CARLOS WEBER CNM Location: [facility] Diagnostic interpretation performed at [facility], [address] [place] [address]. The Pap Smear is a screening test for cervical cancer. False negative results occur with all screening tests, emphasizing the need for rescreening at recommended intervals, and clinical correlation. Observed: 06/15/2018 Status: F Source: [facility] TRICHOMONAS PREP 10:30 AM [facility] REPOSITORY Sp. Request/Comment: - Swab Smear Result - Negative for Trichomonas vaginalis antigen This test was developed and its performance characteristics determined by [facility] [place] ([facility]). It has not been cleared or approved by the FDA. [facility] is regulated under CLIA as qualified to perform high-complexity testing. This test is used for clinical purposes. It should not be regarded as investigational or for research. Performed By: #### TRICHO #### [facility] [employer] [address] [place], [place] [address] Observed: 06/15/2018 Status: F Source: [facility] BACT/CAND VAG GRM ST 10:30 AM [facility] REPOSITORY Sp. Request/Comment: - Swab Smear Result - BACTERIAL VAGINOSIS RESULT: Stain results consistent with bacterial vaginosis. --> ABNORMAL ALERT No Yeast observed Performed By: #### BVCNSM #### [facility] [employer] [facility] [place], [place] [address] PROGRESS Observed: 06/15/2018 Status: COMPLETED Source: [facility] 10:17 AM [facility] REPOSITORY HNO ID: [id number] Author: Juan Carlos Weber Service: (none) Author Type: Infrastructure Administrator Type: Progress Notes Filed: 06/15/2018 11:59 AM Note Text: Sis Santamaria is a 32 year old who presents for her annual gynecologic exam with complaints of pain during and after intercourse as well as occasional bleeding after intercourse. Pain deep with penetration. Patient currently on day one of menses, admits to dysmenorrhea. Menses: cycles every 28 days and 3-4 days of flow. Contraception: tubal ligation (age 22) HPV vaccine: No Last Pap: 2017 normal HPV: negative History of abnormal pap: Yes Last mammogram: never Sexually active: Yes Time with current partner: 1.5 years History of ovarian cyst: Yes Pain with intercourse: Yes, every time, last after a few hours Postcoital bleeding: Yes, occasional. Started 2-3 months ago. Mood swings: Yes Seatbelt use: Yes Obstetric History T1 L2 SAB0 TAB0 Ectopic0 Multiple0 Live Births0 PAST MEDICAL HISTORY Diagnosis Date - Anxiety - Depression - Environmental allergies 06/11/2018 - Ex-smoker 06/11/2018 Started at age 19 less than 1/2 a PPD, quit as of May 2018 - History of drug use 06/11/2018 Marijuana, meth, heroine, cocaine, PAST SURGICAL HISTORY Procedure Laterality Date - APPENDECTOMY 1995 - SECTION HX 2001,2008 - HERNIA REPAIR HX 2009 - KNEE SURGERY HX 2006 - TUBAL LIGATION HX 2008 FAMILY HISTORY Problem Relation Age of Onset - Hypertension Mother - Hyperlipidemia Mother - Cancer Maternal Grandmother - Coronary Artery Disease Maternal Grandfather 60's - Hypertension Maternal Grandfather - Alzheimer's Disease No Family History - Colon Cancer No Family History - Breast Cancer No Family History - Ovarian cancer No Family History - Uterine Cancer No Family History - Prostate Cancer No Family History - Diabetes No Family History - Kidney Disease No Family History - Stroke No Family History - Thyroid No Family History SOCIAL HISTORY Social History Substance Use Topics - Smoking status: Former Smoker - Smokeless tobacco: Never Used - Alcohol use No REVIEW OF SYSTEMS Abdomen: Pain patient stated because she is on her period. No nausea, vomiting, diarrhea, or constipation. No bloating, early satiety, indigestion, or increased flatulence. Bladder: No dysuria, gross hematuria, urgency present, increased frequency, stress incontinence Breast: No breast lumps, nipple d/c, overlying skin changes, redness or skin retraction. Allergies and current medication updated:Yes EXAM: BP 108/70 Ht 5' 4 (1.63m) Wt 178 lb (80.7kg) LMP 06/13/2018 BMI 30.54 kg/(m2). GENERAL: pleasant, female in no apparent distress HEENT: Normocephalic, atraumatic, mucus membranes moist and no lesions NECK: Supple, full range of motion, no adenopathy and thyroid normal DERMATOLOGY: Normal, without lesions, non-icteric, non-hirsute and a naval piercing with small amount of erythema around it, patient states that it is scar tissue BREAST: soft, non-tender, symmetric, no dominant mass, normal nipple-areolar complex, no lymphadenopathy and no nipple discharge CHEST: Clear to auscultation Normal inspiratory effort Regular rate and rhythm ABDOMEN: soft, no masses and Moderate tenderness in RLQ PELVIC: external genitalia normal, normal Bartholin's glands, urethra, Pastura's glands, no vulvar lesions, no cervical lesions, good vaginal support, physiologic discharge present, normal appearing perineal body and perianal region. Small amount of vaginal bleeding in vaginal vault. BIMANUAL: no adnexal masses and Moderate tenderness in the right lower quadrant RECTOVAGINAL: deferred. NEURO: alert and oriented x3,exam grossly non-focal EXTREMITIES: normal ASSESSMENT/PLAN: 1. Encounter for gynecological examination with abnormal finding - ICD9: V72.31, ICD10: Z01.411 (primary diagnosis) - Completed pelvic and breast exam - Encouraged monthly BSE - Follow up for annual exam in one year. 2. Screening for cervical cancer - ICD9: V76.2, ICD10: Z12.4 - Completed pelvic and breast exam - Encouraged monthly BSE - Follow up for annual exam in one year. - PAP FLUID CERVICAL SCREENING 3. Encounter for screening for human papillomavirus (HPV) - ICD9: V73.81, ICD10: Z11.51 4. Screening for STD (sexually transmitted disease) - ICD9: V74.5, ICD10: Z11.3 - GC/CHLAMYDIA DNA DET - TRICHOMONAS PREP - BACT/JEANNA VAG GRAM STAIN 5. PCB (post coital bleeding) - ICD9: 626.7, ICD10: N93.0 6. Dyspareunia, female - ICD9: 625.0, ICD10: N94.10 -Intermittent pain with intercourse. Will order U/S if continues after results. 1) Health maintenance: 2) Pap done with HPV. 3) Contraception: tubal ligation. 4) STD screening: Accepted STD check for Gonorrhea, chlamydia, trich done. BV and yeast done today. 5) Follow up one year or sooner as needed 6) Will review results. If pain continues after menses will order pelvic U/S. Patient denies pain at any other time during cycle. Pain right now with palpation mild and probable due to menses. Ibeth Ascencio Apn Student Juan Carlos Weber APRN.ABDELRAHMAN CNOV Observed: 06/15/2018 Status: COMPLETED Source: [facility] 10:00 AM [facility] REPOSITORY Office Visit ([facility]) SIS SANTAMARIA ([id number]) 1985 F Date Time Provider Department 10/9/18 10:00 AM ASSESSMENT [facility] During your visit today, we recorded the following information about you: Blood pressure Weight Height Last Period 108/70 80.7 kg 1.626 m 06/13/18 Juan Carlos Weber APRN.CNM 06/15/2018 11:59 AM Signed Sis Santamaria is a 32 year old who presents for her annual gynecologic exam with complaints of pain during and after intercourse as well as occasional bleeding after intercourse. Pain deep with penetration. Patient currently on day one of menses, admits to dysmenorrhea. Menses: cycles every 28 days and 3-4 days of flow. Contraception: tubal ligation (age 22) HPV vaccine: No Last Pap: 2016 normal HPV: negative History of abnormal pap: Yes Last mammogram: never Sexually active: Yes Time with current partner: 1.5 years History of ovarian cyst: Yes Pain with intercourse: Yes, every time, last after a few hours Postcoital bleeding: Yes, occasional. Started 2-3 months ago. Mood swings: Yes Seatbelt use: Yes Obstetric History T1 L2 SAB0 TAB0 Ectopic0 Multiple0 Live Births0 PAST MEDICAL HISTORY Diagnosis Date - Anxiety - Depression - Environmental allergies 06/11/2018 - Ex-smoker 06/11/2018 Started at age 19 less than 1/2 a PPD, quit as of May 2018 - History of drug use 06/11/2018 Marijuana, meth, heroine, cocaine, PAST SURGICAL HISTORY Procedure Laterality Date - APPENDECTOMY 1995 - SECTION HX 2001,2007 - HERNIA REPAIR HX 2008 - KNEE SURGERY HX 2006 - TUBAL LIGATION HX 2007 FAMILY HISTORY Problem Relation Age of Onset - Hypertension Mother - Hyperlipidemia Mother - Cancer Maternal Grandmother - Coronary Artery Disease Maternal Grandfather 60's - Hypertension Maternal Grandfather - Alzheimer's Disease No Family History - Colon Cancer No Family History - Breast Cancer No Family History - Ovarian cancer No Family History - Uterine Cancer No Family History - Prostate Cancer No Family History - Diabetes No Family History - Kidney Disease No Family History - Stroke No Family History - Thyroid No Family History SOCIAL HISTORY Social History Substance Use Topics - Smoking status: Former Smoker - Smokeless tobacco: Never Used - Alcohol use No REVIEW OF SYSTEMS Abdomen: Pain patient stated because she is on her period. No nausea, vomiting, diarrhea, or constipation. No bloating, early satiety, indigestion, or increased flatulence. Bladder: No dysuria, gross hematuria, urgency present, increased frequency, stress incontinence Breast: No breast lumps, nipple d/c, overlying skin changes, redness or skin retraction. Allergies and current medication updated:Yes EXAM: BP 108/70 Ht 5' 4 (1.63m) Wt 178 lb (80.7kg) LMP 06/13/2018 BMI 30.54 kg/(m2). GENERAL: pleasant, female in no apparent distress HEENT: Normocephalic, atraumatic, mucus membranes moist and no lesions NECK: Supple, full range of motion, no adenopathy and thyroid normal DERMATOLOGY: Normal, without lesions, non-icteric, non-hirsute and a naval piercing with small amount of erythema around it, patient states that it is scar tissue BREAST: soft, non-tender, symmetric, no dominant mass, normal nipple-areolar complex, no lymphadenopathy and no nipple discharge CHEST: Clear to auscultation Normal inspiratory effort Regular rate and rhythm ABDOMEN: soft, no masses and Moderate tenderness in RLQ PELVIC: external genitalia normal, normal Bartholin's glands, urethra, Pastura's glands, no vulvar lesions, no cervical lesions, good vaginal support, physiologic discharge present, normal appearing perineal body and perianal region. Small amount of vaginal bleeding in vaginal vault. BIMANUAL: no adnexal masses and Moderate tenderness in the right lower quadrant RECTOVAGINAL: deferred. NEURO: alert and oriented x3,exam grossly non-focal EXTREMITIES: normal ASSESSMENT/PLAN: 1. Encounter for gynecological examination with abnormal finding - ICD9: V72.31, ICD10: Z01.411 (primary diagnosis) - Completed pelvic and breast exam - Encouraged monthly BSE - Follow up for annual exam in one year. 2. Screening for cervical cancer - ICD9: V76.2, ICD10: Z12.4 - Completed pelvic and breast exam - Encouraged monthly BSE - Follow up for annual exam in one year. - PAP FLUID CERVICAL SCREENING 3. Encounter for screening for human papillomavirus (HPV) - ICD9: V73.81, ICD10: Z11.51 4. Screening for STD (sexually transmitted disease) - ICD9: V74.5, ICD10: Z11.3 - GC/CHLAMYDIA DNA DET - TRICHOMONAS PREP - BACT/JEANNA VAG GRAM STAIN 5. PCB (post coital bleeding) - ICD9: 626.7, ICD10: N93.0 6. Dyspareunia, female - ICD9: 625.0, ICD10: N94.10 -Intermittent pain with intercourse. Will order U/S if continues after results. 1) Health maintenance: 2) Pap done with HPV. 3) Contraception: tubal ligation. 4) STD screening: Accepted STD check for Gonorrhea, chlamydia, trich done. BV and yeast done today. 5) Follow up one year or sooner as needed 6) Will review results. If pain continues after menses will order pelvic U/S. Patient denies pain at any other time during cycle. Pain right now with palpation mild and probable due to menses. Ibeth Ascencio Apn Student GUIDO Corona APRN.CNM 06/16/2018 5:29 PM Signed Addended by: JUAN CARLOS WEBER on: 06/16/2018 05:29 PM Modules accepted: Orders Juan Carlos Shanks 06/22/2018 3:56 PM Signed Pap logged and normal pap letter sent to patient. Juan Carlos Shanks Referring Provider: ALEN HASSAN [[id number]] Allergies As of Date: 06/15/2018 Noted Allergy Reaction PENICILLINS 10/12/2014 4 - Hives Date Reviewed: 06/15/2018 Reviewed by: Christi Greer Ma - Fully Assessed Primary Visit Diagnosis:Encounter for gynecological examination with abnormal finding [Z01.411] Other Visit Diagnoses:Screening for cervical cancer [Z12.4] Encounter for screening for human papillomavirus (HPV) [Z11.51] Screening for STD (sexually transmitted disease) [Z11.3] PCB (post coital bleeding) [N93.0] Dyspareunia, female [N94.10] Order(s):PAP FLUID CERVICAL SCREENING [[id number]] Order #: [id number] #:[id number] GC/CHLAMYDIA DNA DET [SQGCCAMP] Order #: [id number]. #:[id number] TRICHOMONAS PREP [SQTRICHO] Order #: [id number]. #:[id number] BACT/JEANNA VAG GRAM STAIN [SQBVCNSM] Order #: [id number]. #:[id number] metroNIDAZOLE (FLAGYL) 500 mg tabletTake 1 tablet by mouth twice daily for 7 days.Disp: 14 tabletRfl: 0 HPV W/GENOTYPE [SQHPVHRR] Order #: [id number]. #:[id number] Prescriptions as of 06/15/2018 Sig: METRONIDAZOLE 500 MG TABLET Take 1 tablet by mouth twice * ARIPIPRAZOLE 10 MG TABLET TK 1 T PO D FLUTICASONE 50 MCG/ACTUATION * Use 1 Bethany in each nostril d* Patient taking differently: Use 1 Bethany in each nostril a* Medication notes this encounter ARIPIPRAZOLE 10 MG TABLET >> Christi Greer Ma 06/15/2018 10:21 AM >> CHRISTI GREER MA Jun 15, 2018 10:21 AM Pt is only taking 1/2 tablet daily Problem List As Of Date 06/15/2018 Noted Resolved Pelvic pain in female [R10.2] INVALID FOR* PTSD (post-traumatic stress disorder) [F43.10] INVALID FOR* Priority: A More... Environmental allergies [Z91.09] INVALID FOR* Priority: B Ex-smoker [Z87.891] INVALID FOR* Priority: B More... History of drug use [Z87.898] INVALID FOR* Priority: B More... Well adult exam [Z00.00] INVALID FOR* Priority: E More... Encounter for lipid screening for cardiovascula*INVALID FOR* Encounter for screening for diabetes mellitus [*INVALID FOR* Encounter for gynecological examination [Z01.41*INVALID FOR* Priority: E Prescriptions ordered this encounter Disp Refills Start End METRONIDAZOLE 500 MG TABLET 14 t* 0 06/16/2018 06/23/2018 Route: ORAL Sig: Take 1 tablet by mouth twice daily for 7 days. Disposition: Return in 1 year (on 06/15/2019) for Annual Exam. Follow-up and Disposition History Recorded Letter Text Juan Carlos Weber CNM [facility] [address] [place] [phone] Sis Santamaria [address] [facility] [address] 06/22/2018 [facility]: [id number] Dear Sis, We are pleased to inform you that your recent Pap Test was within normal limits. Because Pap tests are so effective in the early detection of cervical cancer, you are encouraged to continue having the test at regular intervals. You will be due for a 1 year Gynecological Exam after this date 06/15/2019. If you have any questions regarding the above information, do not hesitate to call our office at between the hours of 8:00 a.m. and 5:00 p.m. Sincerely, Juan Carlos Weber CNM Encounter Status:Closed by JUAN CARLOS WEBER on 06/15/18 GC/CHLAMYDIA AMPLIF Collected: 06/15/2018 Status: F Source: [place] 3:57 AM [facility] REPOSITORY TYPE CODE TESTS RESULT OUT OF REFERENCE UNITS RANGE LAB GCCTSR GC/Chlam Amp Cervix Source LAB GCAMPL GC Negative Amplification for Neisseria gonorrhoeae by amplification. LAB CLAMPL Chlamydia Negative Amplif for Chlamydia trachomatis by amplification. Performed By: #### GCCT #### [facility] [address] [id number] HEMOGLOBIN A1C Collected: 06/11/2018 Status: F Source: [place] 9:46 AM [facility] REPOSITORY TYPE CODE TESTS RESULT OUT OF REFERENCE UNITS RANGE LAB HGBA1C 4.3-5.6 % Hemoglobin A1c 5.4 LAB HBA0 mg/dL Est. Average Glucose 108 Result Comment: eAG: (Estimated average glucose) is a calculated value from HgbA1c and is bilingual call center representative of the average blood glucose level in the last 2-3 month period. Performed By: #### HBA1C, LIPNF #### [facility] [address] [place], [place] [address] LIPID PANEL, NONFAST Collected: 06/11/2018 Status: F Source: [place] 9:46 AM [facility] REPOSITORY TYPE CODE TESTS RESULT OUT OF REFERENCE UNITS RANGE LAB CHOLNF <200 mg/dL Total Cholesterol NF 192 Result Comment: <200 mg/dL, Desirable 200-239 mg/dL, Borderline high >239 mg/dL, High LAB TRIGNF <150 mg/dL Triglycerides, NF High 171 Result Comment: <150 mg/dL, Normal 150-199 mg/dL, Borderline high 200-499 mg/dL, High >499 mg/dL, Very high LAB HDLNF >39 mg/dL HDL Cholesterol, NF Low 34 Result Comment: 40-59 mg/dL, Acceptable >59 mg/dL, High: Negative risk factor for coronary heart disease <40 mg/dL, Low: Positive risk factor for coronary heart disease LAB LDLNF <100 mg/dL LDL Cholesterol, High NF 124 Result Comment: <100 mg/dL, Optimal 100-129 mg/dL, Near optimal/above optimal 130-159 mg/dL, Borderline high 160-189 mg/dL, High >189 mg/dL, Very high Secondary prevention optimal LDL Cholesterol levels are recommended to be < 70 mg/dL LAB NOHDLN <130 mg/dL High Non HDL Chol, 158 NF Result Comment: <130 mg/dL, Optimal 130-159 mg/dL, Near optimal/above optimal 160-189 mg/dL, Borderline high 190-219 mg/dL, High >219 mg/dL, Very high Secondary prevention optimal non HDL Cholesterol levels are recommended to be < 100 mg/dL LAB VLDLNF <30 mg/dL VLDL Cholesterol, High NF 34 LAB TCHDLN <5.10 mg/dL T Chol/HDL Ratio High NF 5.65 LAB LDLHDN <2.54 mg/dL LDL/HDL Ratio, NF High 3.65 Result Comment: Reference: 1. National Cholesterol Education Program ATP III Guideline At-A-Glance Quick Desk Reference: National Heart, Lung, and Blood [place]. National Institutes of Health. 2001: NIH Publication No. 01-3305. 2. An International Atherosclerosis Society position paper: global recommendations for the management of dyslipidemia: executive summary, Atherosclerosis. 2014: 232(2):410-413. Performed By: #### HBA1C, LIPNF #### [facility] [address] [id number] PROGRESS Observed: 06/11/2018 Status: COMPLETED Source: [place] 8:55 AM [facility] [place] REPOSITORY HNO ID: [id number] Author: Alen Hassan Service: (none) Author Type: Physician Type: Progress Notes Filed: 06/11/2018 12:32 PM Note Text: Chief Complaint Patient presents with: Establish Care: physical HPI Sis Santamaria is a 32 year old female who presents here today for establish care/[facility]. Patient seeing [facility] and has been diagnosed with PTSD. Otherwise has been doing well. Past medical history, appointments, medications, allergies reviewed. Previous Medical History PAST MEDICAL HISTORY Diagnosis Date - Anxiety - Depression - Environmental allergies 06/11/2018 - Ex-smoker 06/11/2018 Started at age 19 less than 1/2 a PPD, quit as of May 2018 Previous Surgical History PAST SURGICAL HISTORY Procedure Laterality Date - APPENDECTOMY 1995 - SECTION HX 2001,2007 - HERNIA REPAIR HX 2008 - KNEE SURGERY HX 2006 - TUBAL LIGATION HX 2007 Family History FAMILY HISTORY Problem Relation Age of Onset - Hypertension Mother - Hyperlipidemia Mother - Cancer Maternal Grandmother - Coronary Artery Disease Maternal Grandfather 60's - Hypertension Maternal Grandfather - Alzheimer's Disease No Family History - Colon Cancer No Family History - Breast Cancer No Family History - Ovarian cancer No Family History - Uterine Cancer No Family History - Prostate Cancer No Family History - Diabetes No Family History - Kidney Disease No Family History - Stroke No Family History - Thyroid No Family History Patient Allergies ALLERGIES Allergen Reactions - Penicillins Hives Current Medications Current Outpatient Prescriptions on File Prior to Visit: fluticasone (FLONASE) 50 mcg/actuation nasal spray Use 1 Bethany in each nostril daily at bedtime. BEFORE LYING DOWN FOR BED No current facility-administered medications on file prior to visit. Social History Social History Marital status: Spouse name: Years of education: Number of children: Social History Main Topics Smoking status: Former Smoker Packs/day: 0.00 Years: 0.00 Smokeless tobacco: Never Used Alcohol use: No Drug use: No Sexual activity: Yes Partners with: Male control/protection: Tubal Ligation Review of Symptoms REVIEW OF SYSTEMS GENERAL: No weight loss, malaise or fevers HEENT: Negative for frequent or significant headaches, No changes in hearing or vision, no nose bleeds or other nasal problems NECK: Negative for lumps, goiter, pain and significant neck swelling RESPIRATORY: Negative for hemoptysis, wheezing, COPD, dyspnea or shortness of breath CARDIOVASCULAR: Negative for chest pain, leg swelling, hypertension, CHF or palpitations GI: No nausea, vomiting, or diarrhea and No heartburn or reflux symptoms : No history of dysuria or blood MUSCULOSKELETAL: Negative for joint pain or swelling, back pain or muscle pain SKIN: Negative for lesions, rash, and itching PSYCH: See HPI HEMATOLOGY/LYMPHOLOGY: Negative for prolonged bleeding, bruising easily or swollen nodes ENDOCRINE: Negative for cold or heat intolerance, polyuria, polydipsia and goiter NEURO: No history of headaches, syncope, paralysis, seizures or tremors EXAM: BP 114/80 Pulse 74 Resp 14 Ht 162.6 cm (5' 4) Wt 79.8 kg (176 lb) LMP (LMP Unknown) BMI 30.21 kg/m? General Appearance: Well appearing, alert, in no acute distress, well-hydrated, well nourished. and Overweight. Skin: Skin color, texture, turgor normal, no suspicious rashes or lesions. Head: Normocephalic, no masses, lesions, tenderness or abnormalities. Eyes: Anicteric sclera. Pupils are equally round and reactive to light. Extraocular movements are intact. . Ears: External ears normal, canals clear. Nose/Sinuses: Nares normal, septum midline, mucosa normal, no drainage or sinus tenderness. Oropharynx: Lips, mucosa, and tongue normal, teeth and gums normal, oropharynx normal. Neck: Supple, no adenopathy; thyroid symmetric, normal size, no bruits. Lungs: Lungs clear to auscultation. No wheezing, rhonchi, rales. Heart: RRR without murmur, gallop, or rubs. No ectopy. Abdomen: Normal abdominal exam, Abdomen soft, non-tender. Bowel sounds normal. No masses, organomegaly. Extremities: No deformities, edema, skin discoloration . Musculoskeletal: Spine range of motion normal. Muscular strength intact, No joint swelling, deformity, or tenderness. Peripheral Pulses: Normal. Neurologic: Gait normal. Reflexes normal and symmetric. Sensation to light touch and crainal nerves 2-12 intact.. Health Maintenance List DTAP,TDAP,TD(1 - Tdap) due on 2002 ONE PNEUMOVAX PRIOR TO AGE 65 due on 2002 PAP EVERY 5 YEARS due on 2013 HPV EVERY 5 YEARS due on 2013 INFLUENZA(1) due on 05/08/2018 Data reviewed A/P ASSESSMENT/PLAN: 1. Well adult exam - ICD9: V70.0, ICD10: Z00.00 (primary diagnosis) - Encouraged monthly Breast Self Exam - Follow up for annual exam in one year. - LIPID PANEL, NONFASTING - HGB A1C 2. PTSD (post-traumatic stress disorder) - ICD9: 309.81, ICD10: F43.10 - Patient to cont with the [facility] 3. Environmental allergies - ICD9: V15.09, ICD10: Z91.09 - Cont flonase as needed. 4. Ex-smoker - ICD9: V15.82, ICD10: Z87.891 - Patient hopefully will be successful at abstaining. 5. History of drug use - ICD9: 305.93, ICD10: Z87.898 - Has been clean for 2.5 yrs 6. Encounter for screening for diabetes mellitus - ICD9: V77.1, ICD10: Z13.1 Check - HGB A1C 7. Encounter for lipid screening for cardiovascular disease - ICD9: V77.91, V81.2, ICD10: Z13.220, Z13.6 Check - LIPID PANEL, NONFASTING 8. Encounter for gynecological examination - ICD9: V72.31, ICD10: Z01.419 - CONSULT TO FERRYBOAT TICKET TAKER 9. Pelvic pain in female - ICD9: 625.9, ICD10: R10.2 - CONSULT TO FERRYBOAT TICKET TAKER 10. Need for vaccination - ICD9: V05.9, ICD10: Z23 - TDAP VACCINE AGE 7+ IM given Alen Hassan MD CNOV Observed: 06/11/2018 Status: COMPLETED Source: [place] 8:20 AM [facility] REPOSITORY Office Visit (FAMPWS) SIS SANTAMARIA ([id number]) 1985 F Date Time Provider Department 06/11/18 8:20 AM ALEN HASSAN FAMPWS During your visit today, we recorded the following information about you: Pulse Respiration Blood pressure Weight 74/minute 14/minute 114/80 79.8 kg Height 1.626 m Alen Hassan MD 06/11/2018 12:32 PM Signed Chief Complaint Patient presents with: Establish Care: physical HPI Sis Santamaria is a 32 year old female who presents here today for establish care/[facility]. Patient seeing [facility] and has been diagnosed with PTSD. Otherwise has been doing well. Past medical history, appointments, medications, allergies reviewed. Previous Medical History PAST MEDICAL HISTORY Diagnosis Date - Anxiety - Depression - Environmental allergies 06/11/2018 - Ex-smoker 06/11/2018 Started at age 19 less than 1/2 a PPD, quit as of May 2018 Previous Surgical History PAST SURGICAL HISTORY Procedure Laterality Date - APPENDECTOMY 1995 - SECTION HX 2001,2007 - HERNIA REPAIR HX 2008 - KNEE SURGERY HX 2006 - TUBAL LIGATION HX 2007 Family History FAMILY HISTORY Problem Relation Age of Onset - Hypertension Mother - Hyperlipidemia Mother - Cancer Maternal Grandmother - Coronary Artery Disease Maternal Grandfather 60's - Hypertension Maternal Grandfather - Alzheimer's Disease No Family History - Colon Cancer No Family History - Breast Cancer No Family History - Ovarian cancer No Family History - Uterine Cancer No Family History - Prostate Cancer No Family History - Diabetes No Family History - Kidney Disease No Family History - Stroke No Family History - Thyroid No Family History Patient Allergies ALLERGIES Allergen Reactions - Penicillins Hives Current Medications Current Outpatient Prescriptions on File Prior to Visit: fluticasone (FLONASE) 50 mcg/actuation nasal spray Use 1 Bethany in each nostril daily at bedtime. BEFORE LYING DOWN FOR BED No current facility-administered medications on file prior to visit. Social History Social History Marital status: Spouse name: Years of education: Number of children: Social History Main Topics Smoking status: Former Smoker Packs/day: 0.00 Years: 0.00 Smokeless tobacco: Never Used Alcohol use: No Drug use: No Sexual activity: Yes Partners with: Male control/protection: Tubal Ligation Review of Symptoms REVIEW OF SYSTEMS GENERAL: No weight loss, malaise or fevers HEENT: Negative for frequent or significant headaches, No changes in hearing or vision, no nose bleeds or other nasal problems NECK: Negative for lumps, goiter, pain and significant neck swelling RESPIRATORY: Negative for hemoptysis, wheezing, COPD, dyspnea or shortness of breath CARDIOVASCULAR: Negative for chest pain, leg swelling, hypertension, CHF or palpitations GI: No nausea, vomiting, or diarrhea and No heartburn or reflux symptoms : No history of dysuria or blood MUSCULOSKELETAL: Negative for joint pain or swelling, back pain or muscle pain SKIN: Negative for lesions, rash, and itching PSYCH: See HPI HEMATOLOGY/LYMPHOLOGY: Negative for prolonged bleeding, bruising easily or swollen nodes ENDOCRINE: Negative for cold or heat intolerance, polyuria, polydipsia and goiter NEURO: No history of headaches, syncope, paralysis, seizures or tremors EXAM: BP 114/80 Pulse 74 Resp 14 Ht 162.6 cm (5' 4) Wt 79.8 kg (176 lb) LMP (LMP Unknown) BMI 30.21 kg/m? General Appearance: Well appearing, alert, in no acute distress, well-hydrated, well nourished. and Overweight. Skin: Skin color, texture, turgor normal, no suspicious rashes or lesions. Head: Normocephalic, no masses, lesions, tenderness or abnormalities. Eyes: Anicteric sclera. Pupils are equally round and reactive to light. Extraocular movements are intact. . Ears: External ears normal, canals clear. Nose/Sinuses: Nares normal, septum midline, mucosa normal, no drainage or sinus tenderness. Oropharynx: Lips, mucosa, and tongue normal, teeth and gums normal, oropharynx normal. Neck: Supple, no adenopathy; thyroid symmetric, normal size, no bruits. Lungs: Lungs clear to auscultation. No wheezing, rhonchi, rales. Heart: RRR without murmur, gallop, or rubs. No ectopy. Abdomen: Normal abdominal exam, Abdomen soft, non-tender. Bowel sounds normal. No masses, organomegaly. Extremities: No deformities, edema, skin discoloration . Musculoskeletal: Spine range of motion normal. Muscular strength intact, No joint swelling, deformity, or tenderness. Peripheral Pulses: Normal. Neurologic: Gait normal. Reflexes normal and symmetric. Sensation to light touch and crainal nerves 2-12 intact.. Health Maintenance List DTAP,TDAP,TD(1 - Tdap) due on 2002 ONE PNEUMOVAX PRIOR TO AGE 65 due on 2002 PAP EVERY 5 YEARS due on 2013 HPV EVERY 5 YEARS due on 2013 INFLUENZA(1) due on 05/08/2018 Data reviewed A/P ASSESSMENT/PLAN: 1. Well adult exam - ICD9: V70.0, ICD10: Z00.00 (primary diagnosis) - Encouraged monthly Breast Self Exam - Follow up for annual exam in one year. - LIPID PANEL, NONFASTING - HGB A1C 2. PTSD (post-traumatic stress disorder) - ICD9: 309.81, ICD10: F43.10 - Patient to cont with the [facility] 3. Environmental allergies - ICD9: V15.09, ICD10: Z91.09 - Cont flonase as needed. 4. Ex-smoker - ICD9: V15.82, ICD10: Z87.891 - Patient hopefully will be successful at abstaining. 5. History of drug use - ICD9: 305.93, ICD10: Z87.898 - Has been clean for 2.5 yrs 6. Encounter for screening for diabetes mellitus - ICD9: V77.1, ICD10: Z13.1 Check - HGB A1C 7. Encounter for lipid screening for cardiovascular disease - ICD9: V77.91, V81.2, ICD10: Z13.220, Z13.6 Check - LIPID PANEL, NONFASTING 8. Encounter for gynecological examination - ICD9: V72.31, ICD10: Z01.419 - CONSULT TO FERRYBOAT TICKET TAKER 9. Pelvic pain in female - ICD9: 625.9, ICD10: R10.2 - CONSULT TO FERRYBOAT TICKET TAKER 10. Need for vaccination - ICD9: V05.9, ICD10: Z23 - TDAP VACCINE AGE 7+ IM given MD Alen Rand MD 06/11/2018 9:09 AM Signed Please call office in December 2018 to schedule a Complete Physical for on or after 06/11/2019. Referring Provider: SELF [[id number]] Allergies As of Date: 06/11/2018 Noted Allergy Reaction PENICILLINS 10/12/2014 4 - Hives Date Reviewed: 06/11/2018 Reviewed by: Alen Hassan - Fully Assessed Reason for Visit: Establish Care [42] Cmt: physical Primary Visit Diagnosis:Well adult exam [Z00.00] Other Visit Diagnoses:PTSD (post-traumatic stress disorder) [F43.10] Environmental allergies [Z91.09] Ex-smoker [Z87.891] History of drug use [Z87.898] Encounter for screening for diabetes mellitus [Z13.1] Encounter for lipid screening for cardiovascular disease [Z13.220, Z13.6] Encounter for gynecological examination [Z01.419] Pelvic pain in female [R10.2] Need for vaccination [Z23] Order(s):LIPID PANEL, NONFASTING [SQLIPNF] Order #: [id number] FUTURE HGB A1C [CNJTV8B] Order #: [id number] FUTURE CONSULT TO FERRYBOAT TICKET TAKER [9021] Order #: [id number]: 1 TDAP VACCINE AGE 7+ IM [85101INU] Order #: [id number] Prescriptions as of 06/11/2018 Sig: FLUTICASONE 50 MCG/ACTUATION * Use 1 Bethany in each nostril d* Problem List As Of Date 06/11/2018 Noted Resolved Pelvic pain in female [R10.2] INVALID FOR* PTSD (post-traumatic stress disorder) [F43.10] INVALID FOR* Priority: A More... Environmental allergies [Z91.09] INVALID FOR* Priority: B Ex-smoker [Z87.891] INVALID FOR* Priority: B More... History of drug use [Z87.898] INVALID FOR* Priority: B More... Well adult exam [Z00.00] INVALID FOR* Priority: E More... Encounter for lipid screening for cardiovascula*INVALID FOR* Encounter for screening for diabetes mellitus [*INVALID FOR* Encounter for gynecological examination [Z01.41*INVALID FOR* Priority: E Other instructions from your clinician: Please call office in December 2018 to schedule a Complete Physical for on or after 06/11/2019. Medications Discontinued During This Encounter Promethazine-DM (PHENERGAN-DM) 6.25-* 120 * 1 11/09/2015 06/11/2018 Route: ORAL Sig: Take 5 mL by mouth four times daily as needed. Disc: Course of therapy completed pseudoephedrine (SUDAFED) 60 mg tabl* 40 t* 1 11/09/2015 06/11/2018 Route: ORAL Sig: Take 1 tablet by mouth every 6 hours as needed. Disc: Course of therapy completed triamcinolone acetonide (KENALOG) 0.* 15 g 0 06/14/2016 06/11/2018 Route: TOPICAL Sig: Apply 1 application to affected area three times daily. Apply sparingly to area for rash/itching. Disc: Course of therapy completed Disposition: Return in about 1 year (around 06/11/2019) for complete PE. Follow-up and Disposition History Recorded Encounter Status:Closed by ALEN HASSAN on 06/11/18 PROGRESS Observed: 06/03/2018 Status: COMPLETED Source: [place] 8:38 AM [facility] REPOSITORY HNO ID: [id number] Author: Jian Sosa Service: (none) Author Type: Nurse Practitioner Type: Progress Notes Filed: 06/03/2018 9:29 AM Note Text: Subjective HPI Sis Santamaria is a 32 year old female who presents today for CC of nasal congestion, sore throat, cough. This started 1.5 weeks ago. Has tried flonse. Symptoms are worsened by laughing. Risk factors sick exposures at work. Recently quit smoking. Denies possibility of being . Went to ER last Thursday for this, diagnosis URI. No hx of asthma, copd. .Patient presents with: URI: with sore throat x 1.5 week PAST MEDICAL HISTORY Diagnosis Date - Anxiety - Depression PAST SURGICAL HISTORY Procedure Laterality Date - APPENDECTOMY 1995 - SECTION HX 2001,2007 - HERNIA REPAIR HX 2008 - KNEE SURGERY HX 2006 - TUBAL LIGATION HX 2007 ALLERGIES Penicillins MEDICATIONS fluticasone (FLONASE) 50 mcg/actuation nasal spray Use 1 Bethany in each nostril daily at bedtime. BEFORE LYING DOWN FOR BED triamcinolone acetonide (KENALOG) 0.1 % cream Apply 1 application to affected area three times daily. Apply sparingly to area for rash/itching. pseudoephedrine (SUDAFED) 60 mg tablet Take 1 tablet by mouth every 6 hours as needed. Promethazine-DM (PHENERGAN-DM) 6.25-15 mg/5 mL syrup Take 5 mL by mouth four times daily as needed. FAMILY HISTORY Problem Relation Age of Onset - Hypertension Mother - Cancer Maternal Grandmother Social History Substance Use Topics - Smoking status: Current Every Day Smoker - Smokeless tobacco: Never Used - Alcohol use No Review of Systems Constitutional: Negative for chills, fever and weight loss. HENT: Positive for congestion and sore throat. Negative for ear pain and nosebleeds. Respiratory: Positive for cough. Negative for shortness of breath and wheezing. Cardiovascular: Negative for chest pain. Musculoskeletal: Negative for neck pain. Skin: Negative for itching and rash. Objective Blood pressure 104/72, pulse 74, temperature 36.7 ?C (98 ?F), temperature source Left Tympanic, resp. rate 16, weight 80 kg (176 lb 6.4 oz), SpO2 98 %. Physical Exam Constitutional: She is oriented to person, place, and time and well-developed, well-nourished, and in no distress. Non-toxic appearance. She has a sickly appearance (mild). No distress. HENT: Head: Normocephalic and atraumatic. Right Ear: Hearing, tympanic membrane, external ear and ear canal normal. Left Ear: Hearing, tympanic membrane, external ear and ear canal normal. Nose: Nose normal. Mouth/Throat: Uvula is midline, oropharynx is clear and moist and mucous membranes are normal. Eyes: Pupils are equal, round, and reactive to light. Conjunctivae and lids are normal. Right eye exhibits no discharge. Left eye exhibits no discharge. No scleral icterus. Neck: Trachea normal and normal range of motion. Neck supple. Cardiovascular: Normal rate, regular rhythm and normal heart sounds. Pulmonary/Chest: Effort normal and breath sounds normal. Loose cough during exam Lymphadenopathy: She has no cervical adenopathy. Neurological: She is alert and oriented to person, place, and time. Skin: No rash noted. She is not diaphoretic. ASSESSMENT/PLAN: 1. Sinobronchitis - ICD9: 473.9, 490, ICD10: J32.9, J40 - Will begin treatment with Zithromax pack as directed - Supportive care with plenty of fluids, rest, and analgesia prn. - Follow up in 3-5 days if symptoms persist or worsen. -If you experience chest pain/shortness of breath go to ER - AZITHROMYCIN 250 MG TABLET - PREDNISONE 20 MG TABLET Prescription instructions reviewed with patient as applicable. Patient advised if symptoms do not improve or if symptoms worsen sooner, to contact the office for further evaluation by their primary care physician. Potential red flag symptoms discussed with the patient. Reviewed appropriate action plan to take if red flag symptoms occur. Patient agreeable to treatment plan. Jian Sosa APRN.DISPLAY CARVER CNOV Observed: 06/03/2018 Status: COMPLETED Source: [place] 8:30 AM [facility] REPOSITORY Office Visit (WSTR) SIS SANTAMARIA ([id number]) 1985 F Date Time Provider Department 06/03/18 8:30 AM JIAN SOSA (RAD) [facility] During your visit today, we recorded the following information about you: Temperature Pulse Respiration Blood pressure 98 degrees 74/minute 16/minute 104/72 Weight 80 kg Jian Sosa APRN.RAD 06/03/2018 9:29 AM Signed Subjective HPI Sis Santamaria is a 32 year old female who presents today for CC of nasal congestion, sore throat, cough. This started 1.5 weeks ago. Has tried flonse. Symptoms are worsened by laughing. Risk factors sick exposures at work. Recently quit smoking. Denies possibility of being . Went to ER last Thursday for this, diagnosis URI. No hx of asthma, copd. .Patient presents with: URI: with sore throat x 1.5 week PAST MEDICAL HISTORY Diagnosis Date - Anxiety - Depression PAST SURGICAL HISTORY Procedure Laterality Date - APPENDECTOMY 1995 - SECTION HX 2001,2007 - HERNIA REPAIR HX 2008 - KNEE SURGERY HX 2006 - TUBAL LIGATION HX 2007 ALLERGIES Penicillins MEDICATIONS fluticasone (FLONASE) 50 mcg/actuation nasal spray Use 1 Bethany in each nostril daily at bedtime. BEFORE LYING DOWN FOR BED triamcinolone acetonide (KENALOG) 0.1 % cream Apply 1 application to affected area three times daily. Apply sparingly to area for rash/itching. pseudoephedrine (SUDAFED) 60 mg tablet Take 1 tablet by mouth every 6 hours as needed. Promethazine-DM (PHENERGAN-DM) 6.25-15 mg/5 mL syrup Take 5 mL by mouth four times daily as needed. FAMILY HISTORY Problem Relation Age of Onset - Hypertension Mother - Cancer Maternal Grandmother Social History Substance Use Topics - Smoking status: Current Every Day Smoker - Smokeless tobacco: Never Used - Alcohol use No Review of Systems Constitutional: Negative for chills, fever and weight loss. HENT: Positive for congestion and sore throat. Negative for ear pain and nosebleeds. Respiratory: Positive for cough. Negative for shortness of breath and wheezing. Cardiovascular: Negative for chest pain. Musculoskeletal: Negative for neck pain. Skin: Negative for itching and rash. Objective Blood pressure 104/72, pulse 74, temperature 36.7 ?C (98 ?F), temperature source Left Tympanic, resp. rate 16, weight 80 kg (176 lb 6.4 oz), SpO2 98 %. Physical Exam Constitutional: She is oriented to person, place, and time and well-developed, well-nourished, and in no distress. Non-toxic appearance. She has a sickly appearance (mild). No distress. HENT: Head: Normocephalic and atraumatic. Right Ear: Hearing, tympanic membrane, external ear and ear canal normal. Left Ear: Hearing, tympanic membrane, external ear and ear canal normal. Nose: Nose normal. Mouth/Throat: Uvula is midline, oropharynx is clear and moist and mucous membranes are normal. Eyes: Pupils are equal, round, and reactive to light. Conjunctivae and lids are normal. Right eye exhibits no discharge. Left eye exhibits no discharge. No scleral icterus. Neck: Trachea normal and normal range of motion. Neck supple. Cardiovascular: Normal rate, regular rhythm and normal heart sounds. Pulmonary/Chest: Effort normal and breath sounds normal. Loose cough during exam Lymphadenopathy: She has no cervical adenopathy. Neurological: She is alert and oriented to person, place, and time. Skin: No rash noted. She is not diaphoretic. ASSESSMENT/PLAN: 1. Sinobronchitis - ICD9: 473.9, 490, ICD10: J32.9, J40 - Will begin treatment with Zithromax pack as directed - Supportive care with plenty of fluids, rest, and analgesia prn. - Follow up in 3-5 days if symptoms persist or worsen. -If you experience chest pain/shortness of breath go to ER - AZITHROMYCIN 250 MG TABLET - PREDNISONE 20 MG TABLET Prescription instructions reviewed with patient as applicable. Patient advised if symptoms do not improve or if symptoms worsen sooner, to contact the office for further evaluation by their primary care physician. Potential red flag symptoms discussed with the patient. Reviewed appropriate action plan to take if red flag symptoms occur. Patient agreeable to treatment plan. Jian Sosa APRN.RAD Sosa APRN.RAD 06/03/2018 8:54 AM Signed ASSESSMENT/PLAN: 1. Sinobronchitis - ICD9: 473.9, 490, ICD10: J32.9, J40 - Will begin treatment with Zithromax pack as directed - Supportive care with plenty of fluids, rest, and analgesia prn. - Follow up in 3-5 days if symptoms persist or worsen. -If you experience chest pain/shortness of breath go to ER - AZITHROMYCIN 250 MG TABLET - PREDNISONE 20 MG TABLET Referring Provider: SELF [200] Allergies As of Date: 06/03/2018 Noted Allergy Reaction PENICILLINS 10/12/2014 4 - Hives Date Reviewed: 06/03/2018 Reviewed by: Jian (Rad) - Fully Assessed Reason for Visit: URI [115] Cmt: with sore throat x 1.5 week Primary Visit Diagnosis:Sinobronchitis [J32.9, J40] Order(s):azithromycin (ZITHROMAX Z-DEIDRA) 250 mg tabletTake 2 tablets day one, then, 1 tablet daily until gone.Disp: 1 PackageRfl: 0 predniSONE (DELTASONE) 20 mg tabletTake 2 tablets by mouth once daily for 5 days.Disp: 10 tabletRfl: 0 Prescriptions as of 06/03/2018 Sig: FLUTICASONE 50 MCG/ACTUATION * Use 1 Bethany in each nostril d* TRIAMCINOLONE ACETONIDE 0.1 %* Apply 1 application to affect* AZITHROMYCIN 250 MG TABLET Take 2 tablets day one, then,* PREDNISONE 20 MG TABLET Take 2 tablets by mouth once * PSEUDOEPHEDRINE 60 MG TABLET Take 1 tablet by mouth every * PROMETHAZINE-DM 6.25 MG-15 MG* Take 5 mL by mouth four times* Problem List As Of Date 06/03/2018 Noted Resolved Pelvic pain in female [R10.2] INVALID FOR* Other instructions from your clinician: ASSESSMENT/PLAN: 1. Sinobronchitis - ICD9: 473.9, 490, ICD10: J32.9, J40 - Will begin treatment with Zithromax pack as directed - Supportive care with plenty of fluids, rest, and analgesia prn. - Follow up in 3-5 days if symptoms persist or worsen. -If you experience chest pain/shortness of breath go to ER - AZITHROMYCIN 250 MG TABLET - PREDNISONE 20 MG TABLET Prescriptions ordered this encounter Disp Refills Start End AZITHROMYCIN 250 MG TABLET 1 Pa* 0 06/03/2018 06/08/2018 Sig: Take 2 tablets day one, then, 1 tablet daily until gone. PREDNISONE 20 MG TABLET 10 t* 0 06/03/2018 06/08/2018 Route: ORAL Sig: Take 2 tablets by mouth once daily for 5 days. Letter Text [facility] Jian Sosa CNP [address], [place] [address] 06/03/2018 Sis Santamaria [facility]# [id number] [id number] TO WHOM IT MAY CONCERN: This is to confirm that Sis Santamaria had an appointment and was seen at the [facility] in the Department of Urgent Care by Jian Sosa CNP on 06/03/2018. Sincerely yours, Jian Sosa CNP Encounter Status:Closed by JIAN SOSA CNP on 06/03/18 ED NOTE Observed: 05/26/2018 Status: COMPLETED Source: [place] 8:52 AM [facility] OTHER CAMPUS REPOSITORY HNO ID: [id number] Author: Carmen Kenney (Medic) Service: Emergency Medicine Author Type: Geropsychologist and French Professor Type: ED Notes Filed: 05/28/2018 2:50 PM Note Text: Emergency Services: ED Call Back Questionnaire SERVICE DATE: 05/26/2018 Are you feeling better? Yes Any questions about discharge instructions and follow-up care? No Were you able to make a follow up appointment? No, referred to appointment hotline Do you have any further questions? No Is there anything that we could have done differently to improve your ED visit? No SIGNATURE: Carmen Kenney PATIENT NAME: Sis Santamaria DATE: May 28, 2018 TIME: 2:50 PM ED NOTE Observed: 05/26/2018 Status: COMPLETED Source: [place] 8:50 AM [facility] OTHER CAMPUS REPOSITORY HNO ID: [id number] Author: Kristina Vazquez RN Service: (none) Author Type: Registered Nurse Type: ED Notes Filed: 05/26/2018 8:52 AM Note Text: Patient in stable condition upon discharge. resp even and unlabored. No distress noted. Patient states she feels a little better. Discharge and follow up reviewed, plan of care is agreed upon. XR CHEST 2V FRONTAL/LAT Observed: 05/26/2018 Status: F Source: [place] 8:17 AM [facility] [place] REPOSITORY * * *Final Report* * * DATE OF EXAM: May 26 2018 8:17AM MDX [id number] - XR CHEST 2V FRONTAL/LAT / PROCEDURE REASON: Cough, new onset * * * * Physician Interpretation * * * * EXAMINATION: CHEST RADIOGRAPH (2 VIEW FRONTAL and LATERAL) CLINICAL HISTORY: Cough, new onset, MQ: XC2_5 Comparison: None RESULT: Lines, tubes, and devices: None. Lungs and pleura: No consolidation. No lung mass. No pleural effusion. Cardiomediastinal silhouette: Normal cardiomediastinal silhouette. Other: . IMPRESSION: No acute radiographic abnormality. [place] Machine Operator Helper: LAWRENCE Transcribe Date/Time: May 26 2018 8:19A Dictated by : MILANA PEREZ MD This examination was interpreted and the report reviewed and electronically signed by: MILANA PEREZ MD on May 26 2018 8:20AM EST [id number] ED PROV NOTE Observed: 05/26/2018 Status: COMPLETED Source: [place] 7:45 AM [facility] [place] REPOSITORY HNO ID: [id number] Author: Jairon Odell MD Service: (none) Author Type: Physician Type: ED Provider Notes Filed: 05/26/2018 8:28 AM Note Text: ED Provider Note Patient Name: Sis Santamaria SERVICE DATE: 05/26/18 History Patient presents with: Shortness of Breath Cough Patient is a 32-year-old female, with history of prior anxiety/depression, who comes in with upper respiratory symptoms. The patient said she has been sick for the past couple days. She says she doesn't feel good. She has had a productive cough of clear sputum. She describes a lot of chest congestion and feels a little short of breath. She describes a lot of head pressure and feels like her head is going to explode. Her discomfort is mainly frontal. She says her ears feel blocked. Her throat hurts from the coughing. She denies any visual complaints however. She denies any fevers or chills today. She denies any chest pain otherwise except for the congestion. No abdominal pain, vomiting or diarrhea. No urinary complaints. She denies . She denies any rash or bruising or swelling that is new. No localizing numbness or weakness. No other associated symptoms. She is unaware of any ill contacts. She did try some niua-pde-nqyjpla medication yesterday although didn't really seem to help her. PAST MEDICAL HISTORY Diagnosis Date - Anxiety - Depression PAST SURGICAL HISTORY Procedure Laterality Date - APPENDECTOMY 1995 - SECTION HX 2001,2007 - HERNIA REPAIR HX 2008 - KNEE SURGERY HX 2006 - TUBAL LIGATION HX 2007 FAMILY HISTORY Problem Relation Age of Onset - Hypertension Mother - Cancer Maternal Grandmother Social History Social History Main Topics - Smoking status: Current Every Day Smoker - Smokeless tobacco: Never Used - Alcohol use No - Drug use: No - Sexual activity: Yes Partners: Male control/ protection: Tubal Ligation ALLERGIES Allergen Reactions - Penicillins Hives Review of Systems Constitutional: Negative. Negative for fever. HENT: Positive for congestion, ear pain and sinus pressure. Eyes: Negative. Negative for visual disturbance. Respiratory: Positive for cough and shortness of breath. Cardiovascular: Negative. Gastrointestinal: Negative. Negative for abdominal pain. Genitourinary: Negative. Musculoskeletal: Negative. Skin: Negative. Neurological: Positive for headaches. Negative for weakness and numbness. Psychiatric/Behavioral: Negative. Physical Exam BP 132/78 Pulse 101 Temp (Src) 98.2 (Oral) Resp 16 Wt 170 lb (77.1kg) SpO2 96% Physical Exam Constitutional: She is oriented to person, place, and time. She appears well-developed and well-nourished. Non-toxic appearance. She appears slightly uncomfortable although nontoxic and in no severe distress. HENT: Head: Normocephalic and atraumatic. Right Ear: External ear normal. Left Ear: External ear normal. Nose: Nose normal. Mouth/Throat: Oropharynx is clear and moist. No oropharyngeal exudate. There is no tenderness percussion of the frontal or maxillary sinuses. TMs show good light reflex bilaterally with no erythema or bulging. There is no posterior pharyngeal erythema, exudates or tonsillar enlargement. Eyes: Pupils are equal, round, and reactive to light. Conjunctivae and EOM are normal. Right eye exhibits no discharge. Left eye exhibits no discharge. No scleral icterus. Neck: Normal range of motion. Neck supple. Cardiovascular: Normal rate, regular rhythm and normal heart sounds. Exam reveals no gallop and no friction rub. No murmur heard. Pulmonary/Chest: Effort normal and breath sounds normal. No respiratory distress. She has no wheezes. She has no rhonchi. She has no rales. Abdominal: Soft. Bowel sounds are normal. There is no tenderness. There is no rebound, no guarding and no CVA tenderness. Musculoskeletal: Normal range of motion. She exhibits no edema or tenderness. Lymphadenopathy: She has no cervical adenopathy. Neurological: She is alert and oriented to person, place, and time. She has normal strength. No cranial nerve deficit or sensory deficit. Gait normal. GCS eye subscore is 4. GCS verbal subscore is 5. GCS motor subscore is 6. Skin: Skin is warm and dry. No bruising, no ecchymosis, no petechiae and no rash noted. No cyanosis or erythema. No pallor. Nails show no clubbing. Psychiatric: She has a normal mood and affect. Her speech is normal and behavior is normal. Judgment and thought content normal. Cognition and memory are normal. Nursing note and vitals reviewed. Diagnostic Testing ED Labs Ordered and Reviewed - No data to display Procedures ED Course / Clinical Impression Clinical Impressions as of May 26 827 Cough Upper respiratory tract infection, unspecified type Sinus pressure MDM / Disposition / Plan Clinically patient's symptoms are consistent with a viral URI. Two-view chest x-ray was obtained. Per radiology, no acute abnormality was seen. I did order Sudafed for her as well as Andree. I told her that treatment for her illness is symptomatic. I do not believe that antibiotics would be helpful are necessary. I told her that she is a get plenty of rest, drink plenty of fluids and continue [id number]-[id number]-[id number] medications for symptomatic relief. I did write her a prescription for Flonase for the sinus pressure and Tessalon Perles for the cough. I did give her a work note for a couple days. I suggested she call her doctor for follow-up or notify us if not better in the next several days. Patient is comfortable with the plan. No other tests or imaging studies were necessary or indicated at this time. The patient was DISCHARGED: Counseled patient regarding radiology results AND suspected diagnosis AND need for follow-up. Discharged home with verbal and written instructions. They were instructed to return as needed for persistent or worsening symptoms or any new concerns. Given a prescription for the following medication(s): Flonase, Tessalon Condition at time of disposition: stable SIGNATURE: MD Jairon Kramer MD 05/26/18 0828 ED NOTE Observed: 05/26/2018 Status: COMPLETED Source: [place] 7:43 AM [facility] REPOSITORY HNO ID: [id number] Author: Kristina OatesRn) DANIE Vazquez Service: (none) Author Type: Registered Nurse Type: ED Notes Filed: 05/26/2018 7:43 AM Note Text: Patient presents to ED with cough congestion ED NOTE Observed: 02/23/2018 Status: COMPLETED Source: [place] 9:32 PM [facility] REPOSITORY HNO ID: [id number] Author: Estefany OatesRn) DANIE Nelson Service: (none) Author Type: Registered Nurse Type: ED Notes Filed: 02/23/2018 9:33 PM Note Text: [facility] at . Report given to team. ED NOTE Observed: 02/23/2018 Status: COMPLETED Source: [place] 9:25 PM [facility] REPOSITORY HNO ID: [id number] Author: Estefany OatesRn) Omar RN Service: (none) Author Type: Registered Nurse Type: ED Notes Filed: 02/23/2018 9:35 PM Note Text: Patient was told by this RN that she was accepted to [facility] and she will be transferred. She became very upset, saying no, no, no I'm not going! I wasn't given the chance to tell my side of this story. I don't need to go where people are bad and crazy and hurt themselves. Dr. Stanton and this RN at to speak with patient. Pt emotional and crying on phone to her family. ED NOTE Observed: 02/23/2018 Status: COMPLETED Source: [place] 9:05 PM [facility] REPOSITORY HNO ID: [id number] Author: Estefany Santana) DANIE Nelson Service: (none) Author Type: Registered Nurse Type: ED Notes Filed: 02/23/2018 9:06 PM Note Text: Pt was accepted to [facility] on [address] Dr. Bianka Cali, RN [phone] ED NOTE Observed: 02/23/2018 Status: COMPLETED Source: [place] 8:06 PM [facility] [place] REPOSITORY HNO ID: [id number] Author: Estefany OatesRn) Omar RN Service: (none) Author Type: Registered Nurse Type: ED Notes Filed: 02/23/2018 8:07 PM Note Text: Pt wishes to be able to have treatment outpatient. She wishes to not be hospitalized since she just got her freedom back and needs to be at her job tomorrow. This RN relayed this to [facility] bilingual call center representative. She states that they are waiting for a call back from [facility] bc her case is being presented. Pt is aware of this. ED NOTE Observed: 02/23/2018 Status: COMPLETED Source: [place] 6:36 PM [facility] REPOSITORY HNO ID: [id number] Author: Kristina (Rn) DANIE Vazquez Service: (none) Author Type: Registered Nurse Type: ED Notes Filed: 02/23/2018 6:36 PM Note Text: Patient given dinner tray. Family at bedside ED PROV NOTE Observed: 02/23/2018 Status: COMPLETED Source: [place] 3:28 PM [facility] [place] REPOSITORY HNO ID: [id number] Author: Yves Stanton MD Service: (none) Author Type: Physician Type: ED Provider Notes Filed: 02/23/2018 9:48 PM Note Text: ED Attending Continuation of Care Note February 23, 2018 3:28 PM Sis Santamaria was endorsed to me by Dr. Odell. The patient initially presented to the ED for: consideration of driving into a oliver in a suicide attempt. Signout note reviewed Diagnostics were reviewed. Be findings: medically clear, + THC New Physical Exam findings: crying and wants to leave, now denies SI/HI Clinical Course: medically clear, awaiting placement at [facility] for further psychiatric care Plan: as above MD Yves Singer MD 02/23/18 2148 ED NOTE Observed: 02/23/2018 Status: COMPLETED Source: [place] 11:29 AM [facility] OTHER CAMPUS REPOSITORY HNO ID: [id number] Author: Wilian (Medic) Carmen Noel Service: (none) Author Type: Geropsychologist and French Professor Type: ED Notes Filed: 02/23/2018 11:30 AM Note Text: HCG POC test is negative URINALYSIS Collected: 02/23/2018 Status: F Source: [place] 10:30 AM [facility] OTHER [facility]AMP[facility] REPOSITORY TYPE CODE TESTS RESULT OUT OF RANGE REFERENCE UNITS LAB UCOL Yellow Color Yellow LAB [facility] Clear Clarity Abnormal Slightly Hazy Alert LAB UGLUC Negative mg/dL Glucose, Urine Negative LAB UBIL Negative Bilirubin, Urine Negative LAB UKET Negative Ketones, Urine Negative LAB USPG 1.001-1.029 Specific [place], Ur 1.010 LAB UHGB Negative Hemoglobin/Blood, Negative Ur LAB UPH 5.0-8.0 pH 6.0 LAB UPROT Negative mg/dL Protein, Urine Negative LAB UUROB 0.2-1.0 Urobilinogen 0.2 LAB UNITR Negative Nitrites Negative LAB ULKEST Negative Leukest Negative Performed By: #### UA, UTOX2, UAMIC #### [facility] [address] [facility] [address] [facility] [phone] TOXICOLOGY SCREEN,UR Collected: 02/23/2018 Status: F Source: [place] 10:30 AM [facility] OTHER [facility]AMP[facility] REPOSITORY TYPE CODE TESTS RESULT OUT OF REFERENCE UNITS RANGE LAB UPCP2 Negative Negative Phencyclidin e, Urine Result Comment: Cutoff threshold at 25 ng/mL. LAB UBENZ2 Negative Benzodiazepines, Ur Negative Result Comment: Cutoff threshold at 200 ng/mL. LAB UCOC2 Negative Cocaine, Negative Urine Result Comment: Cutoff threshold at 300 ng/mL. LAB UAMPH2 Negative Amphetamines, Urine Negative Result Comment: Cutoff threshold at 1000 ng/mL. LAB UTHC2 Negative Cannabinoids, Abnormal Urine Preliminary Alert positive. Result Comment: Cutoff threshold at 50 ng/mL. LAB UOPI2 Negative Opiates, Negative Urine Result Comment: Cutoff threshold at 300 ng/mL. LAB UBARB2 Negative Barbiturates, Urine Negative Result Comment: Cutoff threshold at 200 ng/mL. LAB UOXYC Negative Oxycodone, Urine Negative Result Comment: Cutoff threshold at 100 ng/mL. Comment: Immunoassay screen only. Cross reactivity with other substances can occur with immunoassay screening. Detection of any drug(s) in this urine toxicology panel is presumptive only. These tests are for med ical purposes only and should not be used for compliance monitoring, legal, or forensic use. Samples should be within normal physiological conditions (e.g. pH). This assay does not include adulteration/specimen validity testing. In clinical settings, confirmatory testing is at the practitioner's discretion [1]. If clinically indicated, confirmation by high specificity, quantitative methodology, which includes adulteration/spec imen validity testing, may be requested on the same specimen through Client Services ([phone]) if contacted within 48 hours of initial testing. [1]Substance Abuse and Mental Health Services Administration (2012). Clinical Drug Testing in Primary Care Technical Assistance Publication Series 32. Department of Health and Human Services, [place], p.10. Performed By: #### UA, UTOX2, UAMIC #### [facility] [address] [place], [place] [id number] URINE MICROSCOPIC Collected: 02/23/2018 Status: F Source: [facility] (FOR LAB USE ONLY) 10:30 AM CLINIC OTHER CAMPUS REPOSITORY TYPE CODE TESTS RESULT OUT OF REFERENCE UNITS RANGE LAB UWBC 0-5 /HPF WBC 0-5 LAB URBC 0-3 /HPF RBC 0-3 LAB UCAST 0 /LPF Cast SEE COMMENT Result Comment: 0 LAB UBACT 0 /HPF Abnormal Bacteria Alert Few LAB UEPI /HPF Epithelial Cells SEE COMMENT Result Comment: 0-5 Squamous Epithelial Cells Performed By: #### UA, UTOX2, UAMIC #### [facility] [address] [place], [place] [id number] HCG QUAL, URINE Collected: 02/23/2018 Status: F Source: [facility] 10:30 AM CLINIC OTHER CAMPUS REPOSITORY TYPE CODE TESTS RESULT OUT OF REFERENCE UNITS RANGE LAB UHCG Negative HCG Qual, Negative Urine Result Comment: False positives and false negatives are rare but have been described. Clinical correlation of the findings is recommended. Performed By: #### UHCG #### [facility] [address] [place] [id number] ED NOTE Observed: 02/23/2018 Status: COMPLETED Source: [facility] 10:30 AM CLINIC OTHER CAMPUS REPOSITORY HNO ID: [id number] Author: Kristina Santana) DANIE Vazquez Service: (none) Author Type: Registered Nurse Type: ED Notes Filed: 02/23/2018 5:57 PM Note Text: Personal belongings placed in locker ED NOTE Observed: 02/23/2018 Status: COMPLETED Source: [place] 10:28 AM [facility] OTHER [place] REPOSITORY HNO ID: [id number] Author: Kristina (Rn) DANIE Vazquez Service: (none) Author Type: Registered Nurse Type: ED Notes Filed: 02/23/2018 10:30 AM Note Text: Patient presents to ED with complaints of SI. Patient states she was recently released from snf and having a hard time adjusting she is a recovering addict. Patient states she drove to [place] and wanted to drown herself. Mom at bedside CK, TOTAL AND CKMB Collected: 02/23/2018 Status: F Source: [place] 10:04 AM CLINIC OTHER [place] REPOSITORY TYPE CODE TESTS RESULT OUT OF REFERENCE UNITS RANGE LAB CK 42-196 U/L 86 CK LAB MB <4.3 ng/mL MB <1.0 LAB CKMBRI 0.0-4.0 % CK CK MB MB % not % reported with CK <100 U/L. Performed By: #### CKCKMB #### [facility] [address] [facility] [phone] ED PROV NOTE Observed: 02/23/2018 Status: COMPLETED Source: [place] 10:01 AM [facility] REPOSITORY HNO ID: [id number] Author: Jairon Odell MD Service: (none) Author Type: Physician Type: ED Provider Notes Filed: 02/23/2018 3:25 PM Note Text: ED Provider Note Patient Name: Sis Santamaria SERVICE DATE: 02/23/18 History Patient presents with: Suicidal Ideation Patient is a 32-year-old female, with a anxiety and depression, who comes in with suicidal thoughts. The patient apparently just was released from snf. She has been having trouble getting a job and has had issues dealing with her kids. She is admittedly a recovering addict. She was on medication for depression, but then ended up stopping them on her own. She started self-medicating after that with heroin. She denies any recent illicit drug use except for some marijuana. She apparently was going to drive her car into the [place] and drown herself today. She denies any homicidal ideation or hallucinations however. She physically he has no acute complaints. No fevers or chills. No headaches or visual complaints. No cough or URI symptoms. No chest pain or difficulty breathing. No abdominal pain, vomiting or diarrhea. She denies being . No urinary complaints. No rash or bruising or swelling that is new. No localizing numbness or weakness. No other associated symptoms. She smokes cigarettes. She drinks rarely. No other drug use mention currently. PAST MEDICAL HISTORY Diagnosis Date - Anxiety - Depression PAST SURGICAL HISTORY Procedure Laterality Date - APPENDECTOMY 1995 - SECTION HX 2001,2007 - HERNIA REPAIR HX 2008 - KNEE SURGERY HX 2006 - TUBAL LIGATION HX 2007 FAMILY HISTORY Problem Relation Age of Onset - Hypertension Mother - Cancer Maternal Grandmother Social History Social History Main Topics - Smoking status: Current Every Day Smoker - Smokeless tobacco: Never Used - Alcohol use No - Drug use: No - Sexual activity: Yes Partners: Male control/ protection: Tubal Ligation ALLERGIES Allergen Reactions - Penicillins Hives Review of Systems Constitutional: Negative. HENT: Negative. Eyes: Negative. Respiratory: Negative. Cardiovascular: Negative. Gastrointestinal: Negative. Genitourinary: Negative. Musculoskeletal: Negative. Skin: Negative. Neurological: Negative. Psychiatric/Behavioral: Positive for dysphoric mood and suicidal ideas. Physical Exam BP 120/80 Pulse 90 Temp (Src) 98.2 (Oral) Resp 18 Ht 5' 4 (1.63m) Wt 170 lb (77.1kg) SpO2 99% BMI 29.17 kg/(m2). Physical Exam Constitutional: She is oriented to person, place, and time. She appears well-developed and well-nourished. Non-toxic appearance. No distress. She has somewhat of a depressed affect although nontoxic and in no severe distress. HENT: Head: Normocephalic and atraumatic. Nose: Nose normal. Mouth/Throat: Oropharynx is clear and moist. No oropharyngeal exudate. Eyes: Conjunctivae and EOM are normal. Pupils are equal, round, and reactive to light. Right eye exhibits no discharge. Left eye exhibits no discharge. No scleral icterus. Neck: Normal range of motion. Neck supple. Cardiovascular: Normal rate, regular rhythm and normal heart sounds. Exam reveals no gallop and no friction rub. No murmur heard. Pulmonary/Chest: Effort normal and breath sounds normal. No respiratory distress. She has no wheezes. She has no rhonchi. She has no rales. Abdominal: Soft. Bowel sounds are normal. There is no tenderness. There is no rebound and no guarding. Musculoskeletal: Normal range of motion. She exhibits no edema. Neurological: She is alert and oriented to person, place, and time. She has normal strength. No cranial nerve deficit or sensory deficit. Gait normal. GCS eye subscore is 4. GCS verbal subscore is 5. GCS motor subscore is 6. Skin: Skin is warm and dry. No bruising, no ecchymosis, no petechiae and no rash noted. No cyanosis or erythema. No pallor. Nails show no clubbing. Psychiatric: Her speech is normal and behavior is normal. Judgment normal. Cognition and memory are normal. She exhibits a depressed mood. She expresses suicidal ideation. She expresses suicidal plans. Nursing note and vitals reviewed. Diagnostic Testing ED Labs Ordered and Reviewed - No data to display Procedures Medical Decision Making MDM I ordered a workup for medical clearance. EKG per my interpretation shows a normal sinus rhythm at a rate of 78 with a normal axis. There is no acute ST elevation or ST depression. T-wave is inverted in lead 3. Intervals are within normal notes otherwise. There is no old EKG available for comparison. CBC was unremarkable. CMP unremarkable except for chloride 106. Cardiac enzymes are negative. Alcohol, acetaminophen and salicylate levels are negative. Urinalysis unremarkable. Urine tox screen positive for THC. Urine hCG pending. From my standpoint, the patient is medically cleared for psychiatric evaluation. [facility] bilingual call center representative will be contacted. After their evaluation, we discussed the case and felt she would benefit from emergent mental health evaluation and treatment. I did fill out a pink slip. Final disposition is still pending. I will sign the patient out to the oncoming physician for follow-up as well as final disposition. Please refer to addendum for further details. ED Course / Clinical Impression Clinical Impressions as of Feb 24 1524 Depression with suicidal ideation Plan The patient was Signed out to oncoming physician for follow- up and final disposition. Condition at time of disposition: guarded SIGNATURE: MD Jairon Kramer MD 02/23/18 1525 CBC AND DIFFERENTIAL Collected: 02/23/2018 Status: F Source: [facility] 10:00 AM CLINIC OTHER CAMPUS REPOSITORY TYPE CODE TESTS RESULT OUT OF REFERENCE UNITS RANGE LAB WBC 3.70-11.00 k/uL WBC 4.62 LAB RBC 3.90-5.20 m/uL RBC 4.08 LAB HGB 11.5-15.5 g/dL Hemoglobin 12.8 LAB HCT 36.0-46.0 % Hematocrit 38.4 LAB MCV 80.0-100.0 fL MCV 94.1 LAB MCH 26.0-34.0 pG MCH 31.4 LAB MCHC 30.5-36.0 g/dL MCHC 33.3 LAB RDWCV 11.5-15.0 % RDW-CV 12.9 LAB PLTCT 150-400 k/uL Platelet Count 286 LAB MPV 9.0-12.7 fL Low MPV 8.9 LAB ANEUT % Neut% 57.8 LAB AANEUT 1.45-7.50 k/uL Abs Neut 2.67 LAB ALYMP % Lymph% 29.2 LAB AALYMP 1.00-4.00 k/uL Abs Lymph 1.35 LAB AMONO % [place]% 9.1 LAB AAMONO <0.87 k/uL Abs [place] 0.42 LAB AEOS % Eosin% 3.5 LAB AAEOS <0.46 k/uL Abs Eosin 0.16 LAB ABASO % Baso% 0.4 LAB AABASO <0.11 k/uL Abs Baso <0.03 Performed By: #### CBCDIF, ACETM, ALCO, SALI, CMP, MG1 #### [facility] [address] [place] [address] ACETAMINOPHEN Collected: 02/23/2018 Status: F Source: [place] 10:00 AM CLINIC OTHER CAMPUS REPOSITORY TYPE CODE TESTS RESULT OUT OF REFERENCE UNITS RANGE LAB ACETM 10-30 ug/mL Acetaminophen <15 Result Comment: Toxic > 200 ug/mL 4 hours post ingestion The Luis Mckenzie nomogram can be used to estimate the probability of hepatotoxicity via the relationship of plasma acetaminophen concentration to the post ingestion interval. (Tony. Pedi atrics. 1975. 55:871 to 876 and Luis et al. [employer] Worker Med. 1981. 141:380 to 385). Reference ranges and high/low indicator flags are provided as general guidelines only. The treating physician must determine appropriate target levels/dosing based on the specific clinical situation. Performed By: #### CBCDIF, ACETM, ALCO, SALI, CMP, MG1 #### [facility] [address] [place] [address] ETHANOL Collected: 02/23/2018 Status: F Source: [place] 10:00 AM [facility] OTHER [place] REPOSITORY TYPE CODE TESTS RESULT OUT OF REFERENCE UNITS RANGE LAB ALCO <11 mg/dL Ethanol <11 Performed By: #### CBCDIF, ACETM, ALCO, SALI, CMP, MG1 #### [facility] [address] [place] [address] SALICYLATE Collected: 02/23/2018 Status: F Source: [place] 10:00 AM [facility] OTHER [place] REPOSITORY TYPE CODE TESTS RESULT OUT OF REFERENCE UNITS RANGE LAB SALI 3.0-30.0 mg/dL Low Salicylate <1.0 Result Comment: The therapeutic range varies and has been reported to be 3.0 to 10.0 mg/dL for anti pyretic/analgesic conditions and 15.0 to 30.0 mg/dL for anti inflammatory/rheumatic fever conditions. Ranges published by the instrument secretary receptionist. Reference ranges and high/low indicator flags are provided as general guidelines only. The treating physician must determine appropriate target levels/dosing based on the specific clinical situation. Performed By: #### CBCDIF, ACETM, ALCO, SALI, CMP, MG1 #### [facility] [address] [place] [address] COMP METABOLIC PANEL Collected: 02/23/2018 Status: F Source: [facility] 10:00 AM [facility] REPOSITORY TYPE CODE TESTS RESULT OUT OF REFERENCE UNITS RANGE LAB TP 6.3-8.0 g/dL Protein, Total 7.1 LAB ALB 3.9-4.9 g/dL Albumin 4.1 LAB CA 8.5-10.2 mg/dL Calcium, Total 9.2 LAB TBIL 0.2-1.3 mg/dL Bilirubin, Total 1.2 LAB ALKP 32-117 U/L Alkaline Phosphatase 54 LAB AST 13-35 U/L AST 16 LAB GLU 74-99 mg/dL Glucose 88 Result Comment: The [place] [employer] (ADA) provides guidance for cutoff values for fasting glucose and random glucose. The ADA defines fasting as no caloric intake for at least 8 hours. Fas ting plasma glucose results between 100 to 125 mg/dL indicate increased risk for diabetes (prediabetes). Fasting plasma glucose results greater than or equal to 126 mg/dL meet the criteria for diagnosis of diabetes. In the absence of unequivocal hyperglycemia, results should be confirmed by repeat testing. In a patient with classic symptoms of hyperglycemia or hyperglycemic crisis, random plasma glucose results greater than or equal to 200 mg/dL meet the criteria for diagnosis of diabetes. Reference: Standards of Medical Care in Diabetes 2016, [place] [employer]. Diabetes Care. 2016.39(Suppl 1). LAB BUN 7-21 mg/dL BUN 11 LAB CRET 0.58-0.96 mg/dL Creatinine 0.85 LAB NA 136-144 mmol/L Sodium 141 LAB K 3.7-5.1 mmol/L Potassium 3.7 LAB CL 97-105 mmol/L Chloride High 106 LAB CO2 22-30 mmol/L CO2 24 LAB AGAP 9-18 mmol/L Anion Gap 11 LAB ALT 7-38 U/L ALT 13 LAB GFRAA eGFR- Amer. >60 LAB GFRNAA . eGFR-All Other Races >60 Result Comment: eGFR (Estimated GFR) Units of measure: mL/min/1.73 meters squared eGFR is derived from the reexpressed MDRD Study equation using the following parameters: serum creatinine, age, gender and race. The creatinine assay has been calibrated to be traceable to IDMS. An eGFR <60 mL/min/1.73m2 for >3 months is consistent with chronic kidney disease. Refer to KDOQI guidelines for clinical interpretation. In patients with unstable renal function, e.g. those with acute kidney injury, the eGFR may not accurately reflect actual GFR. Performed By: #### CBCDIF, ACETM, ALCO, SALI, CMP, MG1 #### [facility] [address] [place] [address] MAGNESIUM Collected: 02/23/2018 Status: F Source: [facility] 10:00 AM CLINIC OTHER CAMPUS REPOSITORY TYPE CODE TESTS RESULT OUT OF REFERENCE UNITS RANGE LAB MG 1.7-2.3 mg/dL Magnesium 1.9 Performed By: #### CBCDIF, ACETM, ALCO, SALI, CMP, MG1 #### [facility] [address] [place] [address] TROPONIN T Collected: 02/23/2018 Status: F Source: [place] 10:00 AM [facility] OTHER CAMPUS REPOSITORY TYPE CODE TESTS RESULT OUT OF REFERENCE UNITS RANGE LAB TROPT 0.000-0.029 ng/mL Troponin T <0.010 Performed By: #### FADY #### [facility] [address] [place] [address] EKG Observed: 02/23/2018 Status: F Source: [facility] 9:52 AM CLINIC OTHER CAMPUS REPOSITORY NAME : SIS SANTAMARIA PID : [id number] : 1985 Gender : Female Race : ORD : [id number] Procedure Date : Feb 23 2018 09:52:40 Edit Date : Feb 23 2018 20:04:19 Diagnosis:NORMAL SINUS RHYTHM CANNOT RULE OUT ANTERIOR INFARCT , AGE UNDETERMINED ABNORMAL ECG WHEN COMPARED WITH ECG OF 26-SEP-2008 11:34, NONSPECIFIC T WAVE ABNORMALITY NOW EVIDENT IN ANTERIOR LEADS Confirmed by Luis Angel GUARDADO, LANDON ([id number]) on 02/23/2018 8:04:11 PM Ventricular Rate : 78 BPM Atrial Rate : 78 BPM P-R Interval : 148 ms QRS Duration : 82 ms Q-T Interval : 376 ms QTC Calculation(Bezet) : 428 ms P [place] : 41 degrees R [place] : 13 degrees T [place] : 7 degrees Test Reason : Change in Mental Status Location : 1 : ER 8 Overread By : Luis Angel GUARDADO AN-JEN Edited By : Luis Angel GUARDADO AN-JEN Referred By : , Acquired by : ALBERT DANG NOTE Observed: 02/23/2018 Status: COMPLETED Source: [place] 9:37 AM [facility] OTHER [place] REPOSITORY HNO ID: [id number] Author: Felicia OatesRn) Rosmery, RN Service: Nursing Author Type: Registered Nurse Type: ED Notes Filed: 02/23/2018 9:38 AM Note Text: Patient presents with SI. Told boyfriend she was going to drive herself into a [place]. Just released from snf and states she is having PTSD ED NOTE Observed: 11/10/2017 Status: COMPLETED Source: [place] 1:06 PM [facility] OTHER [place] REPOSITORY HNO ID: [id number] Author: Mehnaz (Rn) Rubens, DANIE Service: (none) Author Type: Registered Nurse Type: ED Notes Filed: 11/10/2017 1:06 PM Note Text: Discharge instructions given via teach back, verbalized good understanding. D/C Home with RX. ED PROV NOTE Observed: 11/10/2017 Status: COMPLETED Source: [place] 12:34 PM CLINIC OTHER [place] REPOSITORY HNO ID: [id number] Author: Conor Gamboa) [place] Service: (none) Author Type: Physician Animal Care Giver Type: ED Provider Notes Filed: 11/10/2017 12:40 PM Note Text: ED Provider Note Patient Name: Sis Santamaria SERVICE DATE: 11/10/17 History Patient presents with: Wound Infection: Piercing right cheek infected, pt wants piercing removed HPI Comments: 32 year old female with a past medical history of anxiety, depression, presents to the emergency Department chief complaint of a possible wound infection over the right face . Patient stated that she's had a right face piercing over the last 2 years And over the last couple weeks she had noticed clearish yellow drainage coming out of the wound. She denies any fevers or chills. Denies any other complaints. Patient is here for possible infection and she wants the piercing removed History provided by: Patient and medical records PAST MEDICAL HISTORY Diagnosis Date - Anxiety - Depression PAST SURGICAL HISTORY Procedure Laterality Date - APPENDECTOMY 1995 - SECTION HX 2001,2007 - HERNIA REPAIR HX 2008 - KNEE SURGERY HX 2006 - TUBAL LIGATION HX 2007 FAMILY HISTORY Problem Relation Age of Onset - Hypertension Mother - Cancer Maternal Grandmother Social History Social History Main Topics - Smoking status: Current Every Day Smoker - Smokeless tobacco: Never Used - Alcohol use No - Drug use: No - Sexual activity: Yes Partners: Male control/ protection: Tubal Ligation ALLERGIES Allergen Reactions - Penicillins Hives Review of Systems Constitutional: Negative for chills and fever. HENT: Negative for congestion and sore throat. Eyes: Negative for photophobia and visual disturbance. Respiratory: Negative for chest tightness, shortness of breath and wheezing. Cardiovascular: Negative for chest pain and palpitations. Gastrointestinal: Negative for abdominal pain and blood in stool. Genitourinary: Negative for dysuria and hematuria. Musculoskeletal: Negative for neck pain and neck stiffness. Skin: Positive for wound. Negative for color change. Neurological: Negative for dizziness and headaches. Psychiatric/Behavioral: Negative for agitation and confusion. Physical Exam BP 122/74 Pulse 87 Temp (Src) 98.5 (Oral) Resp 18 Ht 5' 5 (1.65m) Wt 170 lb (77.1kg) SpO2 99% BMI 28.29 kg/(m2). Physical Exam Constitutional: She is oriented to person, place, and time. She appears well-developed. HENT: Head: There is a piercing over the right side of the face over the right cheek. Minimal redness around the piercing site. There is no pus, erythema, or redness to I exam. Eyes: Conjunctivae are normal. Pupils are equal, round, and reactive to light. Neck: Normal range of motion. Neck supple. Cardiovascular: Normal rate. Pulmonary/Chest: Effort normal and breath sounds normal. Abdominal: Soft. Bowel sounds are normal. Musculoskeletal: Normal range of motion. Neurological: She is alert and oriented to person, place, and time. Skin: Skin is warm and dry. Psychiatric: She has a normal mood and affect. Her behavior is normal. Diagnostic Testing ED Labs Ordered and Reviewed - No data to display Procedures Medical Decision Making / ED Course ED Course The medical record is reviewed.Triage note is reviewed and incorporated. The nursing note is reviewed and consistent with patient's history and physical exam findings. The vital signs were reviewed the the vital signs are : BP 122/74 Pulse 87 Temp 36.9 ?C (98.5 ?F) (Oral) Resp 18 Ht 165.1 cm (5' 5) Wt 77.1 kg (170 lb) SpO2 99% BMI 28.29 kg/m2 MDM: This is a well-appearing female with a pmh of anxiety who presents to the ED with a chief complaint of wound infection who is, afebrile , hemodynamically stable, in no acute distress patient whose symptoms are controlled in the ED with bactrim . Based on patient's pmh, chief complaint and physical exam findings, differential diagnoses include cellulitis vs MRSA, vs anxiety Patient wants the piercing removed. I told the patient that because the piercing is in the face , I will not attempt to remove the piercing here since I am not equipped to do this and since the piercing is in the face and has a higher chance for scarring. I will give her antibiotics and she will follow up with tattoos/piercing site where she can have the piercing removed. Educated the patient that if sx worsen, she is to return to the ED for possible IV antibiotics. The patient has remained hemodynamically stable throughout the entire ED visit and is without objective evidence for acute process requiring urgent intervention or hospitalization. The patient and/or family had all the tests and diagnosis explained to them and were given both verbal and written discharge instructions. I answered the patient's question as well as family to the best of my ability. The patient is stable for discharge, and pt is instructed to follow up with pcp and educated to return to ed if sx worsen or any new symptoms. Pt agreeable with plan. At this time, based on the patient's history, physical exam findings, lab results and clinical picture , the most likely diagnosis is wound infection Pt educated on the most common causes of Wound infection Pt was sent home with prescription of bactrim Pt instructed to follow up with PCP in 1-2 days Discharge care instructions, medications, follow up instructions, and reasons to return to the ED immediately, such as worsening of symptoms or any new symptoms, were provided verbally and in writing to patient (patient guardian / bilingual call center representative), who verbalized understanding. This note was partially generated using Screen voice recognition system, and there may be some incorrect words, spellings, and punctuation that were not noted in checking the note before saving Encounter Diagnosis ICD-10-CM 1. Wound infection T14.8XXA L08.9 (T14.8XXA, L08.9) Wound infection (primary encounter diagnosis) Comment: acute Plan: dc see pcp rest bactrim see wound/piercing site, return to ed if sx worsen Plan The Patient was DISCHARGED: Counseled patient and family regarding suspected diagnosis AND need for follow-up. Discharged home with verbal and written instructions. They were instructed to return as needed for persistent or worsening symptoms or any new concerns. Condition at time of disposition: stable SIGNATURE: ANDRZEJ Ruiz (Pa) 11/10/17 1240 ED NOTE Observed: 11/10/2017 Status: COMPLETED Source: [facility] 12:20 PM CLINIC OTHER CAMPUS REPOSITORY HNO ID: [id number] Author: Mehnaz (Rn) DANIE Art Service: (none) Author Type: Registered Nurse Type: ED Notes Filed: 11/10/2017 12:21 PM Note Text: Infected piercing on right cheek wants it removed. ALLERGIES ALLERGIES DATE TYPE / CODE NAME / CODE REACTION SEVERITY SOURCE 08/03/2018 Drug Penicillins/[id number] Hives Unknown [place] Allergy/416 0476(RXNORM) [facility] [id number]([facility] ED CT) Repository 08/03/2018 Drug morphine/[id number] Hives Unknown [place] Allergy/416 5(RXNORM) [facility] 224531([facility] ED [facility]) Repository 12/13/2015 DRUG MORPHINE HIVES [facility] INGREDI/[address] [place] 041736(SNOM Repository ED CT) 10/12/2014 Drug PENICILLINS HIVES Med [facility] Class/36639 [address] [place] 1003(SNOMED Repository CT) 10/12/2014 Drug PENICILLINS HIVES [facility] Class/86596 [address] [place] 100[address](SNOMED Repository CT) ENCOUNTERS ENCOUNTERS ADMIT/DISCHARGE ACCOUNT ADMITTING ENCOUNTER LOCATION SOURCE NUMBER CLASS 08/10/2018/08/11/20 [id number] Ambulatory [address] [place] Repository 08/03/2018/08/03/20 [id number] Emergency Kelby Lama [address] [place] [address] ing:ED Repository 08/02/2018/08/02/20 [id number] Ambulatory [address] [facility] [place] [facility] 08/02/2018/08/04/20 [id number] Ambulatory [address] [facility] [place] [facility] 07/05/2018/07/06/20 [id number] Ambulatory [address] [facility] [place] [facility] 06/15/2018/06/16/20 [id number] Ambulatory [address] [facility] [place] [facility] 06/11/2018/06/11/20 [id number] Ambulatory [address] [facility] [place] [facility] 06/11/2018/06/14/20 [id number] Ambulatory [address] [facility] [place] [facility] 06/03/2018/06/03/20 [id number] Ambulatory [address] [facility] [place] [facility] 05/26/2018/05/26/20 [id number] Emergency [address] [facility] 02/23/2018/02/24/20 [id number] Emergency [address] [facility] [place] [facility] 11/10/2017/11/11/19 [id number] Emergency [address] [facility] PAYERS PAYERS ENCOUNTER GUARANTOR PAYER SUBSCRIBER SOURCE 08/03/2018 SIS [id number] Insurance:LILO MERCEDES: [facility] issac VÁSQUEZ Number: [id number] [address]Rjk: [id number] Repository Date:2018-08-03 O () [address]ATTN: [place] [id number]: 08/03/2018 Secondary NOT GIVENUNK Kelby Insurance:[facility] Effective Repository Date:2018-08-03
== END 2018-08-03 15:37 | disposition home or self-care (01) ==
PROVIDERS: Emergency Provider Emergency Medicine; Family Provider Family Medicine; PCP Family Medicine
DX: S59.902D Unspecified injury of left elbow, subsequent encounter (principal); W19.XXXD Unspecified fall, subsequent encounter; M25.522 Pain in left elbow; E66.9 Obesity, unspecified; Z68.33 Body mass index [BMI] 33.0-33.9, adult
CPT/HCPCS: 73080; 99281

== ENCOUNTER 2018-10-22 08:37 | Emergency (ER) | payer MEDICAID, SELFPAY ==
[2018-10-22 08:39] VITALS: BP 125/92; PULSE 125; RESP 18; TEMP 36.2; O2SAT 100; BMI 34.2
--- NOTE | 2018-10-22 08:56 | RAD_ITS ---
STUDY: X-RAY CHEST REASON FOR EXAM: Female, 33 years old. Back pain. Cold-like signs and symptoms TECHNIQUE: PA and lateral views of the chest. COMPARISON: July 21, 2014 FINDINGS: The lungs are clear and expanded. There is no demonstrated pleural abnormality. Normal size heart. There is prominent epicardial fat pad. Normal mediastinum and beatriz. Normal visualized pulmonary arteries. Normal visualized aortic arch and descending thoracic aorta. Normal visualized thoracic spine. Normal visualized ribs, clavicles, and shoulders. There is no demonstrated abnormality of the visualized soft tissue structures of the upper abdomen. RAD/Chest PA and Lateral IMPRESSION: Normal x-ray examination of the chest. Electronically Signed: Clinton Mack MD at 10:34 EST , Service support ,
--- NOTE | 2018-10-22 08:57 | ED.VISSUMM ---
- ER Visit Summary Date of Service: 10/22/18 Chief Complaint: Upper respiratory symptoms History of Present Illness: The patient is a 33 F who presents for 2 days of gradually worsening upper respiratory symptoms. Patient states that she feels very fatigued, has been wheezing, feels stuffed up, and shaky. She has had a sore throat, rhinorrhea, cough and today has developed nausea and had 2 episodes of diarrhea. She has multiple sick contacts, stating a friend and her daughter are also sick. She has history of bipolar disorder. She had a prior episode of bronchitis and still had an inhaler at home, which she tried without any relief. Patient is also complaining of right lower back pain that occurred 1 week ago. She does not know what she did to injure it, but if she sits for a prolonged period of time, she has a lot of pain in her right lower back when she tries to stand up. She tried Tylenol without relief. No numbness or tingling, no weakness in the legs. No loss of bowel or bladder control. Physical Examination: Vital signs: afebrile, normotensive, tachycardic at 125, no hypoxia on room air General: well nourished, well developed, in no distress but appears like she does not feel well Skin: warm, dry, no rash, no pallor HEENT: normocephalic and atraumatic; PERRL, EOMI, moist mucous membranes TMs are clear bilaterally, no oropharyngeal lesions, no posterior swelling or exudate, mild posterior erythema Cardiovascular: Tachycardic rate and regular rhythm without murmurs, no peripheral edema, 2+ pulses all distal extremities Respiratory: No increased work of breathing, no rhonchi or wheezing noted, but mild tachypnea Abdominal: Abdomen is soft, nontender with normoactive bowel sounds, no guarding or rebound, no masses Back: Tenderness to palpation of the right lumbar paraspinal musculature with increased tension to the muscle, no midline tenderness deformities or step-offs MSK: Moves all extremities, no deformities, normal strength Neuro: Awake and alert, oriented ?4. No facial droop, sensation and motor function intact and symmetric Test Results: Clinical Impression(s) from Imaging Studies Chest X-Ray 10/22/18 08:56 IMPRESSION: Normal x-ray examination of the chest. Electronically Signed: Clinton Mack MD at 10:34 EST , Service support , Microbiology Past 72 Hours 10/22/18 09:05 Mucosa - Nose Influenza Types A,B Direct FA (KWAME) - Final Medications Given Discontinued Medications Albuterol/Ipratropium (Duoneb) 3 ml INHALATION X1 ONE Stop: 10/22/18 08:57 Last Admin: 10/22/18 09:08 Dose: 3 ml Sodium Chloride () 1,000 mls @ 999 mls/hr IV .Q1H1M ONE Stop: 10/22/18 09:56 Last Admin: 10/22/18 09:54 Dose: 999 mls/hr Ketorolac Tromethamine (Toradol) 15 mg IV X1 ONE Stop: 10/22/18 08:58 Last Admin: 10/22/18 09:54 Dose: 15 mg Emergency Department Course and Treatment: Patient presents with 2 complaints, the first being 2 days of progressively worsening respiratory symptoms. Patient is tachycardic but afebrile, but she was given IV fluids. She was given a breathing treatment for her shortness of breath. Patient's symptoms with the myalgias and the respiratory symptoms is concerning for possible influenza. Flu swab performed. Patient's back exam is consistent with a muscle strain/spasm. No red flag symptoms concerning for cauda equina syndrome. Flu was negative. Chest x-ray showed no acute process including no pneumonia. Patient was given a breathing treatment and stated it made her cough more but did help. Patient continued to have the back pain after receiving the Toradol. She did feel better after IV fluids. Patient will be prescribed anti-inflammatory and a muscle relaxant for her back spasm. We discussed supportive care and symptomatic treatment for her respiratory symptoms. She was given an albuterol inhaler prescription to use for further wheezing. Patient was feeling much better at time of discharge and tachycardia had improved greatly after IV fluids. Patient discharged home. Treatment Plan: [] Disposition: [] Impression: Respiratory infection/acute bronchitis, lumbar back strain with muscle spasm This note was generated with [employer] software. It may contain incorrect words, spelling, and punctuation that were not noted in review of the chart prior to signing ED Disposition - Plan for ED Patient: Disposition: Home or Assisted Living Instructions: ED Sprain Strain Lumbar, ED Upper Resp Infec No Abx Tx Prescriptions: RX: Albuterol Inhaler [Ventolin Hfa] 2 puff INHALATION Q4H PRN PRN #1 inhaler PRN Reason: Wheezing RX: Cyclobenzaprine HCl 5 mg PO BID PRN PRN #10 tab PRN Reason: Muscle Spasm RX: Naproxen [Naprosyn] 500 mg PO BID #20 tab Referrals: Hussein Watts MD [Primary Care Provider] - 1 Week if not improving Additional Instructions: Use the naproxen as needed for pain, fever, muscle aches, as needed. You may use the albuterol inhaler as needed for wheezing and shortness of breath. Use the cyclobenzaprine for your muscle spasm in your back. Do not use it while driving or doing anything that puts you others at danger because it may make you feel drowsy or dizzy. If you have any worsening of your condition or any new concerning symptoms, please return immediately to the emergency department for another evaluation.
[2018-10-22 09:08] VITALS: PULSE 118; RESP 18
[2018-10-22] MEDS: Ipratropium/Albuterol Sulfate 3 ML AMPUL.NEB INHALATION (09:08)
[2018-10-22] MEDS: 0.9% Normal Saline 1,000 ML 999 ML IV (09:54)
[2018-10-22] MEDS: Ketorolac 15 MG/ML Vial IV (09:54)
[2018-10-22 10:30] VITALS: TEMP 37.4
[2018-10-22 12:51] VITALS: PULSE 110; RESP 17; O2SAT 97
== END 2018-10-22 12:52 | disposition home or self-care (01) ==
PROVIDERS: Emergency Provider Emergency Medicine; Family Provider Family Medicine; PCP Family Medicine
DX: J06.9 Acute upper respiratory infection, unspecified (principal); J20.9 Acute bronchitis, unspecified; S39.012A Strain of muscle, fascia and tendon of lower back, initial encounter; M62.830 Muscle spasm of back; X58.XXXA Exposure to other specified factors, initial encounter; Y93.9 Activity, unspecified; Y92.9 Unspecified place or not applicable; R19.7 Diarrhea, unspecified; F31.9 Bipolar disorder, unspecified; Z79.899 Other long term (current) drug therapy; Z72.0 Tobacco use
CPT/HCPCS: 71046; 87804; 94640; 96361; 96374; 99283; J7030; A4216

== ENCOUNTER → 2018-12-16 15:13 | Outpatient (CLI) | payer MEDICAID, SELFPAY ==
[2018-12-21 12:30] LABS: HPV Reflexed? NOT INDICATED
== END ==
PROVIDERS: Visit Provider Obstetrics & Gynecology
DX: Z12.4 Encounter for screening for malignant neoplasm of cervix (principal)
CPT/HCPCS: 87624; 88175; G0145